=== PATIENT | female | born 1960 | race Caucasian/White ===

== ENCOUNTER 2020-09-06 09:01 | Outpatient (REF) | payer OTHER, SELFPAY ==
[2020-09-06 09:46] LABS: Hematocrit 40.5 % (37-47); Hemoglobin 13.2 g/dl (12.0-16.0); Mean Corpuscular HGB Conc 32.6 g/dl (31.0-35.0); Mean Corpuscular Hemoglobin 28.8 pg (27.0-33.0); Mean Corpuscular Volume 88.2 fL (80-98); Mean Platelet Volume 9.2 fL (9.4-12.3); Platelet Count 227 X10*3/uL (160-400); Red Blood Count 4.59 X10*6/uL (4.20-5.50); Red Cell Distribution Width 12.6 % (11.0-16.0); White Blood Count 5.6 X10*3/uL (4.8-10.8)
[2020-09-06 10:23] LABS: Alanine Aminotransferase 21 U/L (0-31); Albumin Level 4.2 g/dL (3.5-5.0); Alkaline Phosphatase 81 U/L (39-117); Anion Gap 11 (12-20); Aspartate Amino Transferase 21 U/L (5-31); Bilirubin Total 0.8 mg/dL (0.0-1.0); Blood Urea Nitrogen 18 mg/dL (9-16); Calcium 8.8 mg/dL (8.4-10.2); Carbon Dioxide 29 mmol/L (22-29); Chloride 105 mmol/L (96-108); Cholesterol 166 mg/dL; Estimated Glomerular Filt Rate > 60; Glucose Fasting 101 mg/dL (60-99); HDL Cholesterol 52 mg/dL; LDL Cholesterol Calculated 97 mg/dl; Potassium 4.5 mmol/L (3.3-5.1); Sodium 140 mmol/L (135-145); Total Protein 6.6 g/dL (6.5-8.0); Triglycerides 86 mg/dL
[2020-09-06 10:44] LABS: TSH reflex Free T4 1.33 uIU/mL (0.32-4.0)
[2020-09-06 10:47] LABS: Creatinine Urine 138.73 mg/dL; Microalbum/Creatinine Ratio Ur 6.4 ug/mg cr
== END 2020-09-06 09:02 | disposition home or self-care (01) ==
LOC: HO.LAB 09:01
PROVIDERS: PCP Physician Assistant; Visit Provider Physician Assistant
DX: I10 Essential (primary) hypertension (principal)
CPT/HCPCS: 36415; 80053; 80061; 82043; 84443; 85027

== ENCOUNTER 2021-07-10 10:55 | Outpatient (REF) | payer OTHER, SELFPAY ==
[2021-07-10 11:19] LABS: MANUAL DIFF FLAG NO
[2021-07-10 11:50] LABS: Basophils Absolute Auto 0.1 X10*3/uL (0.0-0.2); Basophils Percent Auto 0.7 % (0-2); Eosinophils Absolute Auto 0.2 X10*3/uL (0.0-0.4); Eosinophils Percent Auto 2.5 % (0-4); Hematocrit 42.8 % (37.0-47.0); Imm Gran Abs Auto 0.02 X10*3/uL (0.00-0.03); Imm Gran Pct Auto 0.3 % (0.0-0.4); Lymphocytes Absolute Auto 2.5 X10*3/uL (1.2-4.9); Lymphocytes Percent Auto 34.5 % (20-40); Mean Corpuscular HGB Conc 32.7 g/dl (31.0-35.0); Mean Corpuscular Hemoglobin 28.7 pg (27.0-33.0); Mean Corpuscular Volume 87.9 fL (80.0-98.0); Mean Platelet Volume 9.5 fL (9.4-12.3); Monocytes Absolute Auto 0.5 X10*3/uL (0.1-1.2); Monocytes Percent Auto 7.2 % (2-11); Neutrophils Percent Auto 54.8 % (45-73); Platelet Count 238 X10*3/uL (160-400); Red Blood Count 4.87 X10*6/uL (4.20-5.50); Red Cell Distribution Width 12.3 % (11.0-16.0); White Blood Count 7.3 X10*3/uL (4.8-10.8)
[2021-07-10 12:06] LABS: Alanine Aminotransferase 20 U/L (0-31); Albumin Level 4.6 g/dL (3.5-5.0); Alkaline Phosphatase 89 U/L (39-117); Anion Gap 13 (12-20); Aspartate Amino Transferase 21 U/L (5-31); Bilirubin Total 0.9 mg/dL (0.0-1.0); Blood Urea Nitrogen 19 mg/dL (9-16); Calcium 10.2 mg/dL (8.4-10.2); Carbon Dioxide 29 mmol/L (22-29); Chloride 104 mmol/L (96-108); Cholesterol 193 mg/dL; Estimated Glomerular Filt Rate > 60; Glucose Fasting 95 mg/dL (60-99); HDL Cholesterol 59 mg/dL; LDL Cholesterol Calculated 113 mg/dl; Potassium 4.8 mmol/L (3.3-5.1); Sodium 141 mmol/L (135-145); Total Protein 7.1 g/dL (6.5-8.0); Triglycerides 108 mg/dL
== END 2021-07-10 10:56 | disposition home or self-care (01) ==
LOC: HO.LAB 10:55
PROVIDERS: PCP Physician Assistant; Visit Provider Nurse Practitioner Family
DX: Z00.00 Encounter for general adult medical examination without abnormal findings (principal); E78.00 Pure hypercholesterolemia, unspecified; I10 Essential (primary) hypertension
CPT/HCPCS: 36415; 80053; 80061; 85025

== ENCOUNTER 2021-11-10 10:01 | Outpatient (REF) | payer OTHER, SELFPAY ==
[2021-11-13 10:57] LABS: HPV mRNA E6/E7 rflx Not Detected (Not Detected)
== END 2021-11-10 10:02 | disposition home or self-care (01) ==
LOC: HO.LAB 10:01
PROVIDERS: PCP Physician Assistant; Visit Provider Advanced Practice Midwife
DX: Z01.419 Encounter for gynecological examination (general) (routine) without abnormal findings (principal); Z11.51 Encounter for screening for human papillomavirus (HPV); Z88.1 Allergy status to other antibiotic agents; Z88.0 Allergy status to penicillin
CPT/HCPCS: 87624; 88142

== ENCOUNTER 2021-12-14 14:51 | Outpatient (REF) | payer OTHER, SELFPAY ==
--- NOTE | ~2021-12-14 | XR_ITS ---
EXAMINATION: XR SHOULDER, LEFT CLINICAL INFORMATION: Left shoulder pain COMPARISON: None TECHNIQUE: AP external rotation, Grashey, scapular Y, and axillary views of the left shoulder. FINDINGS: Visualized portion of the proximal left humerus demonstrate no fracture. Left humeral head demonstrates good articulation with the glenoid fossa. There are mild hypertrophic changes of the left acromioclavicular joint. Visualized left-sided ribs and lung parenchyma are unremarkable. XR/XR shoulder LT min 2V IMPRESSION: Mild degenerative changes of the left shoulder.
== END 2021-12-14 14:52 | disposition home or self-care (01) ==
LOC: HO.XRAY 14:51
PROVIDERS: PCP Physician Assistant; Visit Provider Nurse Practitioner Family
DX: M25.512 Pain in left shoulder (principal)
CPT/HCPCS: 73030

== ENCOUNTER → 2022-02-08 09:48 | Outpatient (BNVA) | payer OTHER, SELFPAY | PROVIDERS: PCP Physician Assistant; Visit Provider Physician Assistant | DX: M75.52 Bursitis of left shoulder (principal) | CPT/HCPCS: 20610; 99202; J1040 ==

== ENCOUNTER 2022-07-13 11:41 | Outpatient (REF) | payer OTHER, SELFPAY ==
[2022-07-13 12:34] LABS: Hematocrit 43.2 % (37.0-47.0); Hemoglobin 14.1 g/dl (12.0-16.0); Mean Corpuscular HGB Conc 32.6 g/dl (31.0-35.0); Mean Corpuscular Hemoglobin 28.8 pg (27.0-33.0); Mean Corpuscular Volume 88.2 fL (80.0-98.0); Mean Platelet Volume 9.4 fL (9.4-12.3); Platelet Count 250 X10*3/uL (160-400); Red Cell Distribution Width 12.1 % (11.0-16.0); White Blood Count 6.3 X10*3/uL (4.8-10.8)
[2022-07-13 13:29] LABS: Alanine Aminotransferase 18 U/L (0-31); Albumin Level 4.5 g/dL (3.5-5.0); Alkaline Phosphatase 83 U/L (39-117); Anion Gap 11 (12-20); Aspartate Amino Transferase 21 U/L (5-31); Bilirubin Total 0.7 mg/dL (0.0-1.0); Blood Urea Nitrogen 14 mg/dL (9-16); Calcium 9.7 mg/dL (8.4-10.2); Carbon Dioxide 27 mmol/L (22-29); Chloride 107 mmol/L (96-108); Cholesterol 179 mg/dL; Estimated Glomerular Filt Rate > 60; Glucose Fasting 90 mg/dL (60-99); HDL Cholesterol 63 mg/dL; LDL Cholesterol Calculated 97 mg/dl; Potassium 4.4 mmol/L (3.3-5.1); Sodium 141 mmol/L (135-145); TSH reflex Free T4 1.39 uIU/mL (0.32-4.0); Total Protein 6.8 g/dL (6.5-8.0); Triglycerides 98 mg/dL
[2022-07-13 14:00] LABS: Creatinine Urine 38.48 mg/dL; Microalbumin Urine < 5.0 mg/L
== END 2022-07-13 11:42 | disposition home or self-care (01) ==
LOC: HO.LAB 11:41
PROVIDERS: PCP Physician Assistant; Visit Provider Physician Assistant
DX: I10 Essential (primary) hypertension (principal); Z13.1 Encounter for screening for diabetes mellitus
CPT/HCPCS: 36415; 80053; 80061; 82043; 84443; 85027

== ENCOUNTER 2022-08-07 09:54 | Outpatient (REF) | payer OTHER, SELFPAY | END 2022-08-07 09:55 | disposition home or self-care (01) | LOC: HO.MAMMO 09:54 | PROVIDERS: PCP Physician Assistant; Visit Provider Physician Assistant | DX: Z13.89 Encounter for screening for other disorder (principal) ==

== ENCOUNTER 2023-02-25 14:39 | Outpatient (AMB) | payer OTHER, SELFPAY ==
--- NOTE | 2023-02-25 14:42 | MHC.OFFVIS ---
Intake Vital Signs 02/25/23 14:43 Height 5 ft 5 in Weight 162 lb BMI 27.0 BP 132/62 Blood Pressure Location Lt brachial Position Sitting Pulse 79 Intake Visit Reasons: Colonoscopy Screening Intake Note: Patient presents to in office visit today in colonoscopy screening. CC: Pt states she had her last colonoscopy 13 years ago at [facility]. Denies any GI issues today. 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 She is referred by Jorge A Mckeon of [facility] primary care.? PMX Hypertension Diabetes Left shoulder bursitis Breast asymmetry * SURGICAL HISTORY Pt denies * ALLERGIES Penicillin/amoxicillin * [facility]: none since 07/2022 TODAY'S VISIT She had a prior colonoscopy 12 years ago, she thinks she may have had a polyp. She has little experience with anesthesia and sedation but had no problems on last colonoscopy. She denies any cardiac or No ID problems. No known FHX of CRC or polyps. COUNTS INCLUDE 234 BEDS AT THE [facility] Medical History (Updated 02/25/23 @ 15:09 by MAXIM Hastings) Cough Hypertension Surgical History (Updated 02/25/23 @ 14:53 by CATALINA Johnson) H/O colonoscopy Family History Mother No problems noted. Father No problems noted. Social History Housing: Apartment Alcohol intake: never Patient Tobacco Use Status: Never used Tobacco e-Cigarette/Vaping Use: Never Used Second Hand Smoke Exposure: No service: No Current occupational status: employed Current occupation: [employer] / rt hand Cognitive needs: Yes Hearing needs: No Vision needs: Yes Review of Systems Const Denies fatigue, Denies fever(s), Denies night sweats, Denies poor appetite and Denies weight loss Eyes Details: glasses Reports requires corrective lenses ENT Reports Normal hearing present, Denies dental pain, Denies dysphagia, Denies hearing loss, Denies mouth pain, Denies odynophagia, Denies throat swelling, Denies tongue swelling and Reports other (Dentition adequate) GI Denies abdominal pain, Denies melena, Denies bloating, Denies hematochezia, Denies constipation, Denies GI cramping, Denies dysphagia, Denies excessive flatus, Denies early satiety, Denies heartburn, Denies diarrhea, Denies nausea, Denies odynophagia, Denies vomiting and Denies hematemesis Skin/Breast Denies pruritus, Denies lesions, Denies rash and Denies jaundice Neuro Reports Normal hearing present and Denies Abnormal speech present Endo Denies fatigue Aller/Immun Denies throat swelling and Denies tongue swelling Physical Exam Vital Signs: Last Vital Signs Pulse 79 02/25/23 14:43 BP 132/62 02/25/23 14:43 BMI result Body Mass Index 27.0 Const General: cooperative, no acute distress, well developed and well groomed Nutritional Appearance: average body habitus and well nourished Orientation/consciousness: oriented to person, oriented to place and oriented to time Limitations: No language barrier HEENT Head: Yes normocephalic and Yes atraumatic Eyes General: appearance normal, both eyes and all related structures Pupils: Equal, round and reactive pupils present Neck Neck: Yes normal visual inspection and Yes no lymphadenopathy Thyroid: Thyroid normal Resp Effort & Inspection: normal respiratory effort and able to speak in complete sentences Auscultation: clear to auscultation bilaterally Cardio Rate: regular rate Rhythm: regular rhythm Heart sounds: Normal, physiologic split S2 sound present Peripheral pulses: radial pulses present and posterior tibial pulses present GI Inspection: No distended and No Abdominal panniculus present Palpation (GI): Soft to palpation, nontender, no guarding, not rigid and No hepatosplenomegaly present Percussion: Yes normal to percussion Auscultation: normal bowel sounds Rectal Exam - Female: deferred Skin General skin exam: no rashes or lesions noted, turgor normal, skin not dry, no jaundice, No spider nevi and no striae Rashes: no rashes Nails: normal Neuro General: oriented to person, oriented to place and oriented to time Cranial nerves: Yes Equal, round and reactive pupils present and Yes Normal hearing present Speech: No Abnormal speech present Extrem General: Yes normal to inspection, No clubbing, No cyanosis and No edema Psych Appearance: grossly normal and well kempt Mental Status: mental status grossly normal Speech and movement: Pressured speech present Affect: Animated affect present Attitude: cooperative Thought process: Normal thought process present and not confabulating Thought content: Normal thought content present Insight: Limited insight present (Psych) Judgement: Limited judgement present (Psych) Assessment & Plan Assessment & Plan (1) Pre-op examination: Code(s): Z01.818 - Encounter for other preprocedural examination Plan: She had a prior colonoscopy 12 years ago, she thinks she may have had a polyp. She has little experience with anesthesia and sedation but had no problems on last colonoscopy. She denies any cardiac or No ID problems. No known FHX of CRC or polyps. Orders: Orders Complete Blood Count no Diff 02/25/23 I10 - Essential (primary) hypertension, Z01.818 - Encounter for other preprocedural examination Comprehensive [place]. Panel Fast 02/25/23 I10 - Essential (primary) hypertension, Z01.818 - Encounter for other preprocedural examination Medications: New sodium,potassium,mag sulfates 17.5-3.13-1.6 gram (Suprep Bowel Prep Kit) 480 mL orally; 354 mL 0RF Z01.818 - Encounter for other preprocedural examination Coding Level of Care Code New Pt Level 3 (64331) Diagnoses Pre-op examination Z01.818
[2023-02-25 14:43] VITALS: BP 132/62; PULSE 79; BMI 27.0
== END 2023-02-25 15:31 | disposition home or self-care (01) ==
PROVIDERS: PCP Physician Assistant; Visit Provider Nurse Practitioner
DX: Z01.818 Encounter for other preprocedural examination (principal); Z12.11 Encounter for screening for malignant neoplasm of colon
CPT/HCPCS: 99203

== ENCOUNTER → 2023-02-25 14:39 | Outpatient (BNVA) | payer OTHER, SELFPAY | PROVIDERS: PCP Physician Assistant; Visit Provider Nurse Practitioner | DX: Z01.818 Encounter for other preprocedural examination (principal) | CPT/HCPCS: 99202 ==

== ENCOUNTER 2023-06-15 16:38 | Outpatient (REF) | payer OTHER, SELFPAY ==
[2023-06-15 18:12] LABS: Iron 65 mcg/dL (30-160); Percent Iron Saturation 22 % (15-50); Total Iron Binding Capacity 302 mcg/dL (228-428); Unsaturated Iron Binding 237 ug/dL
== END 2023-06-15 16:39 | disposition home or self-care (01) ==
LOC: HO.LAB 16:38
PROVIDERS: Visit Provider Physician Assistant
DX: D50.9 Iron deficiency anemia, unspecified (principal)
CPT/HCPCS: 36415; 83540

== ENCOUNTER 2023-07-09 09:21 | Outpatient (REF) | payer OTHER, SELFPAY ==
[2023-07-09 09:58] LABS: Hematocrit 43.1 % (37.0-47.0); Hemoglobin 14.3 g/dl (12.0-16.0); Mean Corpuscular HGB Conc 33.2 g/dl (31.0-35.0); Mean Corpuscular Hemoglobin 29.2 pg (27.0-33.0); Mean Platelet Volume 9.6 fL (9.4-12.3); Platelet Count 220 X10*3/uL (160-400); Red Cell Distribution Width 12.1 % (11.0-16.0); White Blood Count 5.3 X10*3/uL (4.8-10.8)
[2023-07-09 10:24] LABS: Alanine Aminotransferase 14 U/L (0-31); Albumin Level 4.3 g/dL (3.5-5.0); Alkaline Phosphatase 79 U/L (39-117); Anion Gap 14 (12-20); Aspartate Amino Transferase 18 U/L (5-31); Blood Urea Nitrogen 19 mg/dL (9-16); Calcium 9.5 mg/dL (8.4-10.2); Carbon Dioxide 27 mmol/L (22-29); Chloride 106 mmol/L (96-108); Cholesterol 171 mg/dL (<200); Estimated Glomerular Filt Rate > 60; Glucose Fasting 92 mg/dL (60-99); HDL Cholesterol 60 mg/dL (>40); LDL Cholesterol Calculated 96 mg/dL (<100); Potassium 4.8 mmol/L (3.3-5.1); Sodium 142 mmol/L (135-145); Triglycerides 79 mg/dL (<150)
[2023-07-09 11:31] LABS: Creatinine Urine 101.72 mg/dL; Microalbum/Creatinine Ratio Ur 16.7 ug/mg cr (<30)
== END 2023-07-09 09:22 | disposition home or self-care (01) ==
LOC: HO.LAB 09:21
PROVIDERS: Nurse Practitioner; PCP Physician Assistant; Visit Provider Physician Assistant
DX: Z01.818 Encounter for other preprocedural examination (principal); I10 Essential (primary) hypertension
CPT/HCPCS: 36415; 80053; 80061; 82043; 82570; 85027

== ENCOUNTER 2023-07-13 15:40 | Outpatient (AMB) | payer OTHER, SELFPAY ==
[2023-07-13 15:40] VITALS: BP 136/70; PULSE 86; O2SAT 97; BMI 26.1
--- NOTE | 2023-07-13 15:40 | A.OFFPC_ITS ---
Vital Signs 07/13/23 15:40 Height 5 ft 5 in Weight 157 lb BMI 26.1 BP 136/70 Blood Pressure Location Lt brachial Position Sitting Pulse 86 Pulse Source Pulse Oximeter Pulse Oximetry (%) 97 Oxygen Delivery Method Room Air Intake Visit Reasons: PE Intake Note: Patient is here today for a physical. 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 Accompanied by: Self / Same As Patient Allergies amoxicillin Allergy (Intermediate, Verified 07/13/23 16:02) delusion Penicillins Allergy (Unknown, Verified 07/13/23 16:02) Hallucinations Medication List - Last Reconciled 07/13/23 by Jorge A Mckeon PA-C albuterol sulfate 90 mcg/actuation (Ventolin HFA) inhalation clotrimazole 1% 1 appl topical BID 15 days diclofenac sodium 1% (Voltaren Arthritis Pain) 2 grams topical QID fexofenadine (Mendy Allergy) 180 mg PO DAILY 30 days losartan 50 mg PO DAILY sodium,potassium,mag sulfates 17.5-3.13-1.6 gram (Suprep Bowel Prep Kit) 480 mL orally; Tobacco use date assessed: 01/03/23 Dental Screening Dental Screen Date: 07/13/23 Did you have a dental visit in the last 12 months?: Yes Did you have a dental problem in the last 6 months where you did not have access to dental care?: No Was dental information given to patient?: Patient has dentist HPI PE HPI Details Patient is a 62-year-old female here today for follow-up visit. Patient's past medical history significant for hypertension. concerns--> reports having a bug bite on her left leg that has been evident over the last month. Has been using Neosporin though has not gone away. .. Osteoarthritis: She continues to osteoarthritis pain in her shoulders and both knees and lower back. She has not used any [id number]-lgmmduo analgesics as she is afraid of side effects. She attributes her pain to long periods of standing at work. She is a peds retiring within the next 2 years. PLAN: She is willing to trial meloxicam 15 mg on a p.r.n. basis for her arthritic pain. . Hypertension: Patient adherent to losartan. Today's blood pressure in office acceptable. She denies any chest discomfort, headaches or vision issues. .. Colon cancer screening: Due to be scheduled colonoscopy mammo: Mammo done at [facility]- done at 09/2022- [facility] 1 Vaccine: Up-to-date with COVID vaccine, tetanus vaccine, flu vaccine. Considering shingles vaccine PFSH Medical History Cough Hypertension Surgical History H/O colonoscopy Family History Mother No problems noted. Father No problems noted. Social History Housing: Apartment Alcohol intake: never Patient Tobacco Use Status: Never used Tobacco e-Cigarette/Vaping Use: Never Used Second Hand Smoke Exposure: No service: No Current occupational status: employed Current occupation: [employer] / [employer] Cognitive needs: Yes Hearing needs: No Vision needs: Yes Questionnaire Thrive Questionnaire Date Thrive assessed: 01/03/23 JAN-7 AMB Questionnaire JAN-7 Date JAN - 7 assessed: 01/03/23 Source: Developed by Drs. José Luis Purcell, Aylin Paris, Gregg Hull and colleagues, with an educational niesha from [employer]. Review of Systems Const Denies body aches, Denies chills, Denies excessive sweating, Denies fatigue, Denies fever(s) and Denies headache(s) Eyes Denies blurry vision ENT Denies dysphagia, Denies vertigo, Denies dizziness, Denies headache(s), Denies hearing loss and Denies tinnitus Card Denies chest pain, Denies chest pain with activity, Denies syncope, Denies irregular heart rhythm and Denies dyspnea Resp Denies chest congestion, Denies cough, Denies hemoptysis, Denies dyspnea and Denies wheezing GI Denies abdominal pain, Denies melena, Denies hematochezia, Denies coffee ground emesis, Denies dysphagia, Denies diarrhea, Denies nausea and Denies vomiting Denies urinary frequency, Denies dysuria, Denies urinary hesitancy and Denies urinary urgency Musc Denies arthralgias, Denies limited range of motion, Denies muscle cramps and Denies muscle weakness Skin/Breast Denies rash and Denies skin ulcer Neuro Denies Abnormal speech present, Denies confusion, Denies vertigo, Denies dizziness, Denies syncope, Denies headache(s), Denies memory loss and Denies seizure-like activity Psych Denies anxiety, Denies confusion, Denies depression, Denies memory loss, Denies panic attacks and Denies paranoia Endo Denies excessive sweating, Denies fatigue, Denies flushing, Denies polydipsia and Denies polyuria Aller/Immun Denies wheezing Physical exam (Primary Care) Vital Signs: Last Vital Signs Pulse 86 07/13/23 15:40 BP 136/70 07/13/23 15:40 Pulse Ox 97 07/13/23 15:40 Oxygen Delivery Method Room Air 07/13/23 15:40 BMI result Body Mass Index 26.1 Tobacco/Smoking Status: Tobacco use Status Tobacco use date assessed 01/03/23 07/13/23 15:42 Patient Tobacco Use Status Never used Tobacco 07/13/23 15:42 e-Cigarette/Vaping Use Never Used 07/13/23 15:42 Thrive Assessment: Date of Thrive Assessment Date Thrive assessed 01/03/23 07/13/23 15:42 Const General: cooperative, comfortable, no acute distress, alert and awake; No confusion Orientation/consciousness: oriented to person, oriented to place, patient oriented x3 and No confusion HENMT Head: Yes normocephalic Ears: external ears normal and TM's normal bilaterally Face and sinus: No sinus tenderness Mouth: Normal oral and palatal mucosa present and tongue normal Teeth and gingiva: dentition normal and gingiva normal Throat: Yes posterior oropharynx normal, Yes tonsils normal and Yes uvula midline Eyes Conjunctivae: conjunctivae normal Sclerae: sclerae normal Pupils: Equal, round and reactive pupils present EOM: EOMs intact bilaterally Direct Ophthalmoscopy: No no photophobia Neck Neck: Yes no lymphadenopathy, No tender and Yes no JVD Thyroid: Thyroid normal Carotids: no bruits Chest Chest palpation & inspection: no tenderness Resp Effort & Inspection: normal respiratory effort, no audible wheezes, not labored and no stridor Auscultation: no crackles, no rales, no rhonchi and no wheezes Cardio Jugular venous distension: no JVD Rate: regular rate, not bradycardic and not tachycardic Rhythm: regular rhythm Bruits: no carotid bruits Peripheral pulses: Peripheral pulses 2+ throughout GI Inspection: Yes normal to inspection, No abdominal wall ecchymosis and No visible herniation Palpation (GI): Soft to palpation, nontender, no guarding, not rigid and No hepatosplenomegaly present Auscultation: normoactive bowel sounds General: Yes no CVA tenderness Back/Spine/Pelvis Back: no CVA tenderness and No back tenderness Cervical Spine: cervical ROM normal Thoracic/Lumbar Spine: thoracic and lumbar spine normal to inspection, straight leg raise negative bilaterally, No thoraco-lumbar ROM limited and No lumbar spinal tenderness Skin Lesions: no lesions Rashes: no rashes Wounds: no wounds Neuro General: oriented to person, oriented to place, patient oriented x3, CN's II-XI intact bilaterally and No confusion Cranial nerves: Yes Equal, round and reactive pupils present and Yes Normal accommodation reflex present Cognition (Neuro): normal cognition Speech: No Abnormal speech present Gait exam (Neuro): Normal gait present Motor exam (neuro): 5/5 motor strength present throughout Extrem Right upper extremity: full ROM; no cyanosis Left upper extremity: full ROM; no cyanosis Right lower extremity: no edema Left lower extremity: no edema Psych Appearance: grossly normal Mental Status: mental status grossly normal Affect: normal affect Attitude: cooperative Thought process: Normal thought process present Assessment and Plan Assessment & Plan (1) Annual physical exam: Code(s): Z00.00 - Encounter for general adult medical examination without abnormal findings (2) HTN (hypertension): Code(s): I10 - Essential (primary) hypertension Qualifiers: Hypertension type: essential hypertension Qualified Code(s): I10 - Essential (primary) hypertension Plan: Patient's blood pressure acceptable today in office. Will continue her current dose of losartan with goal blood pressure to be below 140/90 (3) Diabetes mellitus screening: Code(s): Z13.1 - Encounter for screening for diabetes mellitus (4) Osteoarthritis, knee: Code(s): M17.9 - Osteoarthritis of knee, unspecified Qualifiers: Laterality: bilateral Osteoarthritis type: primary Qualified Code(s): M17.0 - Bilateral primary osteoarthritis of knee Plan: As patient BI patient willing to trial meloxicam 15 mg for her arthritic pain. A otherwise has diclofenac sodium gel to use on a p.r.n. basis. Advised to continue to be physically active. Orders: Orders Complete Blood Count no Diff 6 Months I10 - Essential (primary) hypertension Microalbumin, Random (w Creat) 6 Months I10 - Essential (primary) hypertension Comprehensive [place]. Panel Fast 6 Months I10 - Essential (primary) hypertension Medications: New meloxicam 15 mg PO DAILY 30 days PRN 30 tabs 1RF pain, moderate M17.0 - Bila teral primary osteoarthritis of knee Coding Level of Care Code Est Pt Prev Care 40-64y(82016) Diagnoses Annual physical exam Z00.00 Essential hypertension I10 Hypertension type: essential hypertension Diabetes mellitus screening Z13.1 Primary osteoarthritis of both knees M17.0 Laterality: bilateral Osteoarthritis type: primary
== END 2023-07-13 16:37 | disposition home or self-care (01) ==
PROVIDERS: Visit Provider Physician Assistant
DX: Z00.00 Encounter for general adult medical examination without abnormal findings (principal); I10 Essential (primary) hypertension; Z13.1 Encounter for screening for diabetes mellitus; M17.0 Bilateral primary osteoarthritis of knee
CPT/HCPCS: 99396

== ENCOUNTER 2024-01-12 15:27 | Outpatient (AMB) | payer OTHER, SELFPAY ==
[2024-01-12 15:28] VITALS: BP 132/70; PULSE 82; O2SAT 98; BMI 25.1
--- NOTE | 2024-01-12 15:28 | A.OFFPC_ITS ---
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 Allergies amoxicillin Allergy (Intermediate, Verified 01/12/24 15:43) delusion Penicillins Allergy (Unknown, Verified 01/12/24 15:43) Hallucinations Medication List - Last Reconciled 01/12/24 by Jorge A Mckeon PA-C acetaminophen ER (Tylenol Arthritis Pain) 650 mg PO Q12H 30 days albuterol sulfate 90 mcg/actuation (Ventolin HFA) inhalation clotrimazole 1% 1 appl topical BID 15 days diclofenac sodium 1% (Voltaren Arthritis Pain) 2 grams topical QID fexofenadine (Mendy Allergy) 180 mg PO DAILY 30 days losartan 50 mg PO DAILY sodium,potassium,mag sulfates 17.5-3.13-1.6 gram (Suprep Bowel Prep Kit) 480 mL orally; Tobacco use date assessed: 01/12/24 Fall risk assessment: No Falls in past year Last assessed Fall Risk: 01/12/24 Dental Screening Dental Screen Date: 01/12/24 HPI f/u HTN HPI Details Patient is a 62-year-old female here today for follow-up visit. Patient's past medical history significant for hypertension. .. Osteoarthritis: She continues to osteoarthritis pain in her shoulders and both knees and lower back. She has not used any [id number] analgesics as she is afraid of side effects. She attributes her pain to long periods of standing at work. She is a peds retiring within the next 2 years. Has tried meloxicam in the past though had some minor side effects. She continues with Tylenol arthritis with good effect on reducing her arthritic pain . Hypertension: Patient adherent to losartan. Today's blood pressure in office acceptable. She denies any chest discomfort, headaches or vision issues. PFSH Medical History Cough Hypertension Surgical History H/O colonoscopy Family History Mother No problems noted. Father No problems noted. Social History Housing: Apartment Alcohol intake: never Patient Tobacco Use Status: Never used Tobacco e-Cigarette/Vaping Use: Never Used Second Hand Smoke Exposure: No service: No Current occupational status: employed Current occupation: [employer] Cognitive needs: Yes Hearing needs: No Vision needs: Yes Questionnaire PHQ-9 Over the last 2 weeks, how often have you been bothered by any of the following problems? 1. Little interest or pleasure in doing things: not at all 2. Feeling down, depressed, or hopeless: not at all 3. Trouble falling or staying asleep, or sleeping too much: not at all 4. Feeling tired or having little energy: not at all 5. Poor appetite or overeating: not at all 6. Feeling bad about yourself - or that you are a failure or have let yourself or your family down: not at all 7. Trouble concentrating on things, such as reading the newspaper or watching te levision: not at all 8. Moving or speaking so slowly that other people could have noticed. Or the opposite - being so fidgety or restless that you have been moving around a lot more than usual: not at all 9. Thoughts that you would be better off or of hurting yourself in some way: not at all Total score: 0 Depression Screening Interpretation: Negative Depression Screening Done: Yes [id number] - PHQ-9 Billing: Yes Source: Developed by Drs. José Luis Purcell, Aylin Paris, Gregg Hull and colleagues, with an educational niesha from [employer]. Thrive Questionnaire Date Thrive assessed: 01/12/24 I am a: Patient What is your living situation today?: I have a steady place to live Within the past 12 months, did the food you bought not last and you didn't have the money to get more?: Never true Within the past 12 months, did you worry whether your food would run out before you got money to buy more?: Never true Do you have trouble paying for medicines?: No Do you have trouble getting transportation to medical appointments?: No Do you have trouble paying your heating and electricity bill?: No Do you have trouble taking care of your child, family member or friend?: No Do you have trouble with day-to-day activities such as bathing, preparing meals, shopping, managing finances, etc.?: No Are you currently unemployed and looking for a job?: No Are you interested in more education?: No Please select the resources that you would like help with: None Currently or been in a relationship where the following occur: no concerns reported THRIVE Score: 0 AUDIT C Alcohol Use Questionnaire (AUDIT-C) 1. How often do you have a drink containing alcohol?: Never 3. How often do you have six or more drinks on one occasion?: Never Total Score: 0 JAN-7 AMB Questionnaire JAN-7 Date JAN - 7 assessed: 01/12/24 Feeling nervous, anxious, or on edge: 0 = Not at all Not being able to stop or control worryin = Not at all Worrying too much about different things: 0 = Not at all Trouble relaxin = Not at all Being so restless that it is hard to sit still: 0 = Not at all Becoming easily annoyed or irritable: 0 = Not at all Feeling afraid as if something awful might happen: 0 = Not at all Total JAN-7 score (0-4 normal; 5-9 mild; 10-14 moderate; 15-21 severe): 0 Source: Developed by Drs. José Luis Purcell, Aylin Paris, Gregg Hull and colleagues, with an educational niesha from [employer]. JAN-7 Assessment Billing JAN-7 Assessment Tool: JAN-7 Assessment [id number] Review of Systems Const Denies headache(s) Eyes Denies loss of vision ENT Denies vertigo, Denies dizziness, Denies headache(s) and Denies sore throat Card Denies chest pain, Denies leg edema and Denies lightheadedness Resp Denies cough, Denies hemoptysis and Denies wheezing GI Denies abdominal pain, Denies melena, Denies constipation, Denies diarrhea and Denies vomiting Denies urinary frequency, Denies dysuria and Denies urinary urgency Musc Denies arthralgias, Denies joint swelling, Denies numbness and Denies tingling Neuro Denies Abnormal speech present, Denies behavioral changes, Denies vertigo, Denies dizziness, Denies headache(s), Denies loss of vision, Denies memory loss, Denies numbness and Denies tingling Psych Denies anxiety, Denies behavioral changes, Denies depression, Denies memory loss and Denies panic attacks Nirmal/Lymph Denies easy bleeding and Denies easy bruising Aller/Immun Denies wheezing Physical exam (Primary Care) Vital Signs: Last Vital Signs Pulse 82 01/12/24 15:28 BP 132/70 01/12/24 15:28 Pulse Ox 98 01/12/24 15:28 Oxygen Delivery Method Room Air 01/12/24 15:28 BMI result Body Mass Index 25.1 Tobacco/Smoking Status: Tobacco use Status Tobacco use date assessed 01/12/24 01/12/24 15:30 Patient Tobacco Use Status Never used Tobacco 01/12/24 15:30 e-Cigarette/Vaping Use Never Used 01/12/24 15:30 PHQ-9: PHQ-9 Score PHQ-9: Total score 0 01/12/24 15:46 Depression Screening Interpretation: Negative Thrive Assessment: Date of Thrive Assessment Date Thrive assessed 01/12/24 01/12/24 15:30 Currently or been in a relationship where the following occur: no concerns reported Const General: healthy appearing, no acute distress, alert and awake Nutritional Appearance: well nourished Orientation/consciousness: oriented to person, oriented to place and oriented to time HENMT Ears: TM's normal bilaterally General nose exam: Normal nasal mucous membranes and turbinates present Eyes Conjunctivae: conjunctivae normal Sclerae: sclerae normal Pupils: Equal, round and reactive pupils present Neck Neck: Yes no lymphadenopathy and Yes no JVD Thyroid: Thyroid normal Carotids: no bruits Resp Effort & Inspection: normal respiratory effort and not tachypneic Auscultation: no crackles, no rales, no rhonchi and no wheezes Cardio Rate: regular rate Rhythm: regular rhythm Heart sounds: no murmurs and normal S1 and S2 GI Palpation (GI): Soft to palpation, nontender, no hepatomegaly and no splenomegal y Auscultation: normal bowel sounds Skin General skin exam: no rashes or lesions noted and dry skin Neuro General: oriented to person, oriented to place and oriented to time Cranial nerves: Yes Equal, round and reactive pupils present Speech: No Abnormal speech present Gait exam (Neuro): Normal gait present Motor exam (neuro): no tremor noted Extrem Right upper extremity: full ROM Left upper extremity: full ROM Right lower extremity: full ROM; no edema Left lower extremity: full ROM; no edema Psych Mental Status: mental status grossly normal Speech and movement: Normal speech and movement present Affect: normal affect Attitude: cooperative Thought process: Normal thought process present Assessment and Plan Assessment & Plan (1) HTN (hypertension): Code(s): I10 - Essential (primary) hypertension Qualifiers: Hypertension type: essential hypertension Qualified Code(s): I10 - Essential (primary) hypertension Plan: Patient's blood pressure acceptable today in office. Will continue her current dose of losartan with goal blood pressure to be below 140/90 (2) Osteoarthritis, knee: Code(s): M17.9 - Osteoarthritis of knee, unspecified Qualifiers: Laterality: bilateral Osteoarthritis type: primary Qualified Code(s): M17.0 - Bilateral primary osteoarthritis of knee Plan: Advised to continue to be physically active. She does use Tylenol arthritis with good effect on reducing her arthritic pain. Orders: Orders Microalbumin, Random (w Creat) 01/12/24 I10 - Essential (primary) hypertension Complete Blood Count no Diff 01/12/24 I10 - Essential (primary) hypertension Comprehensive Donaldson. Panel Fast 01/12/24 I10 - Essential (primary) hypertension Patient Instructions: Goal: Blood pressure to remain below 140/90 Barriers: Adherence to physical activity and healthy eating habits. Coding Level of Care Code Est Pt Level 4 (53727) Diagnoses Essential hypertension I10 Hypertension type: essential hypertension Primary osteoarthritis of both knees M17.0 Laterality: bilateral Osteoarthritis type: primary Additional Codes JAN-7 Assessment Billing - JAN-7 Assessment Tool: JAN-7 Assessment [id number] ([id number])
== END 2024-01-12 16:05 | disposition home or self-care (01) ==
PROVIDERS: PCP Physician Assistant; Visit Provider Physician Assistant
DX: I10 Essential (primary) hypertension (principal); M17.0 Bilateral primary osteoarthritis of knee
CPT/HCPCS: 99214

== ENCOUNTER 2024-04-13 07:32 | Outpatient (REF) | payer OTHER, SELFPAY ==
[2024-04-13 07:58] LABS: Hematocrit 40.7 % (37.0-47.0); Hemoglobin 13.7 g/dl (12.0-16.0); Mean Corpuscular HGB Conc 33.7 g/dl (31.0-35.0); Mean Corpuscular Hemoglobin 29.3 pg (27.0-33.0); Mean Corpuscular Volume 87.2 fL (80.0-98.0); Mean Platelet Volume 9.2 fL (9.4-12.3); Platelet Count 195 X10*3/uL (160-400); Red Blood Count 4.67 X10*6/uL (4.20-5.50); Red Cell Distribution Width 12.5 % (11.0-16.0); White Blood Count 5.3 X10*3/uL (4.8-10.8)
[2024-04-13 08:36] LABS: Alanine Aminotransferase 14 U/L (0-31); Albumin Level 4.3 g/dL (3.5-5.0); Alkaline Phosphatase 75 U/L (39-117); Anion Gap 10 (12-20); Aspartate Amino Transferase 16 U/L (5-31); Blood Urea Nitrogen 18 mg/dL (9-16); Calcium 9.7 mg/dL (8.4-10.2); Carbon Dioxide 30 mmol/L (22-29); Chloride 107 mmol/L (96-108); Estimated Glomerular Filt Rate > 60; Glucose Fasting 97 mg/dL (60-99); Potassium 3.9 mmol/L (3.3-5.1); Sodium 143 mmol/L (135-145); Total Protein 6.7 g/dL (6.5-8.0)
[2024-04-13 08:37] LABS: HIV AB/AG Nonreactive (Nonreactive); HIV Num 1 0.07 S/CO (0.00-0.99)
[2024-04-13 08:46] LABS: TSH reflex Free T4 1.65 uIU/mL (0.32-4.0)
[2024-04-13 09:24] LABS: Creatinine Urine 156.54 mg/dL; Microalbum/Creatinine Ratio Ur 5.7 ug/mg cr (<30)
== END 2024-04-13 07:33 | disposition home or self-care (01) ==
LOC: HO.LAB 07:32
PROVIDERS: PCP Physician Assistant; Visit Provider Physician Assistant
DX: I10 Essential (primary) hypertension (principal); R63.4 Abnormal weight loss; Z11.3 Encounter for screening for infections with a predominantly sexual mode of transmission
CPT/HCPCS: 36415; 80053; 82043; 82570; 84443; 85027; 87389

== ENCOUNTER 2024-06-04 14:51 | Outpatient (AMB) | payer OTHER, SELFPAY ==
[2024-06-04 15:04] VITALS: BP 140/72; BMI 23.8
--- NOTE | 2024-06-04 15:04 | A.OFFPC_ITS ---
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: No Accompanied by: Self / Same As Patient Allergies amoxicillin Allergy (Intermediate, Verified 06/04/24 15:11) delusion Penicillins Allergy (Unknown, Verified 06/04/24 15:11) Hallucinations Medication List - Last Reconciled 06/04/24 by Lisset Solorzano MD acetaminophen ER (Tylenol Arthritis Pain) 650 mg PO Q12H 30 days albuterol sulfate 90 mcg/actuation (Ventolin HFA) inhalation clotrimazole 1% 1 appl topical BID 15 days diclofenac sodium 1% (Voltaren Arthritis Pain) 2 grams topical QID fexofenadine (Mendy Allergy) 180 mg PO DAILY 30 days losartan 50 mg PO DAILY sodium,potassium,mag sulfates 17.5-3.13-1.6 gram (Suprep Bowel Prep Kit) 480 mL orally; Tobacco use date assessed: 01/12/24 Fall risk assessment: No Falls in past year Last assessed Fall Risk: 06/04/24 Dental Screening Dental Screen Date: 06/04/24 Did you have a dental visit in the last 12 months?: No Did you have a dental problem in the last 6 months where you did not have access to dental care?: No Was dental information given to patient?: Patient has dentist HPI HPI Comments History of Present Illness Details This is a 63 year old female that comes today complaining of low back pain that radiates to the left lef starting 2 weeks ago after she push something heavy. She was out of work for 2 weeks and came back today. The pain was waken her up. Today pain has markedly resolve with 1 aleve. She was taken tylenol before with no significant relief. No fever, bowel or bladder incontinence. [facility] Medical History (Updated 06/04/24 @ 20:25 by Lisset Solorzano MD) Cough Hypertension Surgical History H/O colonoscopy Family History Mother No problems noted. Father No problems noted. Social History Housing: Apartment Alcohol intake: never Patient Tobacco Use Status: Never used Tobacco e-Cigarette/Vaping Use: Never Used Second Hand Smoke Exposure: No service: No Current occupational status: employed Current occupation: [employer] / [employer] Cognitive needs: Yes Hearing needs: No Vision needs: Yes Questionnaire Thrive Questionnaire Date Thrive assessed: 01/12/24 JAN-7 AMB Questionnaire JAN-7 Date JAN - 7 assessed: 01/12/24 Source: Developed by Drs. José Luis Purcell, Aylin Paris, Gregg Hull and colleagues, with an educational niesha from [employer]. Review of Systems Const All systems reviewed & are unremarkable except as noted in HPI and below Card Denies chest pain at rest, Denies chest pain with activity, Denies edema, Denies irregular heart rhythm, Denies claudication, Denies dyspnea, Denies dyspnea on exertion, Denies orthopnea, Denies paroxysmal nocturnal dyspnea and Denies slow heart rate Resp Denies cough, Denies dyspnea and Denies dyspnea on exertion Denies urinary incontinence, Denies urinary hesitancy and Denies urinary urgency Musc Denies abnormal gait, Reports back pain, Denies atrophy, Denies deformity and Denies limited range of motion Skin/Breast Denies bleeding lesions, Denies changing lesions and Denies rash Neuro Denies abnormal gait, Denies behavioral changes and Denies lack of coordination Psych Denies behavioral changes Physical exam (Primary Care) Vital Signs: Last Vital Signs BP 140/72 H 06/04/24 15:04 BMI result Body Mass Index 23.8 Tobacco/Smoking Status: Tobacco use Status Tobacco use date assessed 01/12/24 06/04/24 15:06 Patient Tobacco Use Status Never used Tobacco 06/04/24 15:06 e-Cigarette/Vaping Use Never Used 06/04/24 15:06 Thrive Assessment: Date of Thrive Assessment Date Thrive assessed 01/12/24 06/04/24 15:06 Resp Effort & Inspection: normal respiratory effort Auscultation: clear to auscultation bilaterally Cardio Jugular venous distension: no JVD Rate: regular rate Rhythm: regular rhythm Heart sounds: S1 normal heart sound present and S2 normal heart sound present Back/Spine/Pelvis Thoracic/Lumbar Spine: straight leg raise positive left Extrem General: Yes full ROM Coding Level of Care Code Est Pt Level 3 (39037) Complex EM visit Add On G2211 Diagnoses Left sided sciatica M54.32 Time Spent (min) 19 Assessment & Plan Assessment & Plan (1) Left sided sciatica: Code(s): M54.32 - Sciatica, left side Category: Medical Plan: Continue tylenol prn.
== END 2024-06-04 15:38 | disposition home or self-care (01) ==
LOC: HO.HMCH 14:52
PROVIDERS: PCP Physician Assistant; Visit Provider Internal Medicine
DX: M54.32 Sciatica, left side (principal)

== ENCOUNTER → 2024-06-04 14:51 | Outpatient (BNVA) | payer OTHER, SELFPAY | PROVIDERS: PCP Physician Assistant; Visit Provider Internal Medicine | DX: M54.32 Sciatica, left side (principal) | CPT/HCPCS: 99212 ==

== ENCOUNTER 2024-07-17 15:54 | Outpatient (AMB) | payer OTHER, SELFPAY ==
--- OUTSIDE RECORDS SUMMARY | 2024-07-17 15:56 | XMS_ITS | Data Portability ---
Author Organization [facility] Address [address] [place] [address] Care Team Providers Care Business Analysis Professional Name Role Phone KENTRELLERICJUDY Primary Care Provider Assessment No assessment recorded. Plan of Treatment Reminders Order Date Submit Date Provider Last Modified By Organization Details Last Modified Time Details Appointments None recorded. Lab None recorded. Referral None recorded. Procedures None recorded. Surgeries None recorded. Imaging None recorded. Medication Orders ibuprofen 600 mg tablet 2022 023 [facility] [address] [place] [address], [id number], 3 09:29:45 cyclobenzap rine 10 mg tablet 2022 023 [facility] [address], [address] [place] [address], [id number], 3 09:29:44 Patient TargetsNo targets recorded. Patient Instructions Encounter Date Encounter Id Patient Instructions Last Modified By Organization Details Last Modified Time 11/01/2022 [id number] MUSCULOSKELETAL PAIN can be managed quite effectively with over the counter medications and home treatments. When suffering from sprains, strains, contusions and other types of very painful but non-dangerous musculoskeletal pain try the following: ??? 1. IBUPROFEN 600 mg orally every 6 hours as needed for pain. (You may substitute naproxen/aleve 1-2 tablets orally twice per day, but do not take ibuprofen and naproxen together. They are in the same class of medications - NSAIDs). ??? 2. ACETAMINOPHEN 1,000 mg or 6 hours is needed for pain. ??? 3. ICE and/or HEAT as needed for pain. Only use ice or heat for about 20 minutes at a time to prevent skin damage. You may switch from one to the other if it helps. Repeat frequently throughout the day as needed. Please do not fall asleep while using ice or heat as severe frostbite or chatman can result. For sudden injuries it is best to use ice without heat for the first two days. You may then add heat as needed for pain control. ??? 4. Topical medication such as ASPERCREME, mineral ice, and bengay feels good to rub on painful areas and then works by distracting you from the pain. Do not apply over broken skin. ??? 5. Many musculoskeletal injuries can benefit from gentle stretching or strengthening exercises. ??? If pain does not improve please see your doctor or return to [facility] within one week. If your symptoms become severe or uncontrolled or if you develop new concerning symptoms please go to the Emergency Department for evaluation and pain control. summer Not available 11/01/2022 09:29:37 Elevate injured extremity to help decrease swelling Ice the area 15 minutes every 3-4 hours ibuprofen and/or tylenol as needed for pain Follow up with [facility] or your pcp if the injury fails to heal in the coming weeks [email or web address] Not available 11/01/2022 09:29:15 Reason for Referral None Reported. Problems Name Problem SNOMED Code Status Onset Date Resolution Date Notes Provider Name and Address Organization Details Recorded Time Hypertensive disorder 85716015 Active 2022 JUVENTINO swartz, PA - [facility] 3 08:58:00 Problem Notes None recorded. Medical Equipment None Reported. Allergies Allergen ID Allergen Name Allergen Category Reaction Reaction Severity Criticality Documentation Date Start Date Code Code System Note Provider Name and Address Organization Details Recorded Time 667833 Medicinal product containin g penicilli n and acting as antibacte rial agent (product) medicatio n hallucina tions Not available Not available 11/01/2022 04337 05 SNOMED JUVENTINO swartz, PA - [facility] 08:59:21 084543 amoxicill in medicatio n hallucina tions Not available Not available 11/01/2022 723 RxNorm JUVENTINO swartz, PA - [facility] 3 08:59:33 Medications Name Sig Start Date Stop Date Status Note LastModified by Organization Details LastModified Time losartan 50 mg tablet TAKE ONE TABLET DAILY active Not Available Not Available No t Available cyclobenzapri ne 10 mg tablet TAKE 1 TABLET BY MOUTH ONCE DAILY AT BEDTIME FOR 7 DAYS active Not Available Not Available N ot Available clindamycin HCl 300 mg capsule TAKE 1 CAPSULE BY MOUTH THREE TIMES DAILY FOR INFECTION FOR 10 DAYS active Not Available Not Available No t Available benzonatate 200 mg capsule TAKE 1 CAPSULE BY MOUTH THREE TIMES DAILY NEEDED FOR COUGH FOR 7 DAYS active Not Available Not Available No t Available prednisone 20 mg tablet TAKE 2 TABLETS BY MOUTH ONCE DAILY IN THE MORNING WITH FOOD FOR 3 DAYS active Not Available Not Available N ot Available codeine 10 mg-guaifenesi n 100 mg/5 mL oral liquid TAKE 5 ml's BY MOUTH EVERY 6 HOURS NEEDED FOR COUGH active Not Available Not Available No t Available ibuprofen 600 mg tablet TAKE 1 TABLET BY MOUTH THREE TIMES DAILY WITH MEALS FOR 10 DAYS active Not Available Not Available No t Available fluticasone propionate 50 mcg/actuation nasal spray,suspens ion USE 1 SPRAY(S) IN EACH NOSTRIL TWICE DAILY FOR ALLERGIES SYMPTOMS active Not Available Not Available No t Available naproxen 500 mg tablet TAKE ONE TABLET BY MOUTH TWICE DAILY NEEDED FOR PAIN active Not Available Not Available No t Available Ventolin HFA 90 mcg/actuation aerosol inhaler INHALE 2 PUFFS BY MOUTH EVERY 4 HOURS NEEDED FOR SHORTNESS OF BREATH active Not Available Not Available No t Available losartan 50 mg daily active Not Available Not Available No t Available potassium active Not Available Not Kimberlyn ilable Not Available diclofenac 1 % topical gel APPLY TWO GRAM FOUR TIMES DAILY TO SINGLE ELBOW, WRIST OR HAND (PALM, FINGER AND FOR BACK OF HAND) active Not Available Not Available No t Available Vitals Date Recorded Body height Body mass index (BMI) Body weight Respiratory rate Oxygen saturation Oxygen saturation in Arterial blood by Pulse oximetry Heart rate Body temperature Systolic blood pressure Diastolic blood pressure Provider Name and Address Organization Details Last Updated DateTime 3 165.1 cm 25.8 kg/m2 76044.8 2 g 16 /min 98 % 98 % 84 /min 98.4 [degF] 143 mm[Hg] 77 mm[Hg] JUVENTINO Michael [facility] 09:02:02 Social History Question Answer Notes LastModified by Organizat ion Details LastModified Time Tobacco Smoking Status Never Smoker XIAO Crowley - [facility] 11/01/2022 09:00:40 What Is Your Level Of Alcohol Consumption? None [email or web address] Information not available 11/01/2022 Do You Use Any Illicit Or Recreational Drugs? No [email or web address] Information not available 11/01/2022 Have You Recently Traveled Abroad? No [email or web address] Information not available 11/01/2022 Do You Or Have You Ever Used Any Other Forms Of Tobacco Or Nicotine? No [email or web address] Information not available 11/01/2022 Sex: Unknown Functional Status None recorded. Mental Status None recorded. Family History Relationship Description Onset Age of this Age Resolved Age Notes LastModified by Organization Details LastModified Time Father No current problems or disability [email or web address] Not available 11/01 09:00:20 Mother No current problems or disability [email or web address] Not available 11/01 09:00:21 Medical History No medical history recorded. Gynecological HistoryNo gynecological history recorded. Obstetrics History GPAL:G 0 P 0 0 0 0 Past Encounters Encounter ID Performer Location Encounter Start Date Encounter Closed Date Diagnosis/Indication Diagnosis SNOMED-CT Code Diagnosis ICD10 Code [id number] [address] [place] [address] 05/10/2022 10:03:32 05/10/2022 14:14:57 [id number] [address] [place] [address] 03/29/2022 08:22:54 03/29/2022 10:00:25 [id number] [address] [place] [address] 04/25/2022 09:04:23 04/25/2022 11:30:34 [id number] [address] [place] [address] 08/02/2016 09:08:03 08/02/2016 09:33:56 [id number] [address] [place] [address] 11/18/2015 12:45:31 11/18/2015 13:25:26 [id number] Adrián Ibarra NP [address] [place] [address] 11/01/2022 08:13:20 11/01/2022 09:32:08 Fall on same level from slipping, tripping or stumbling 342608009 W01.0XXA Muscle pain 30621792 M79 .10 Contusion of right hip region 9262649699 3027715 S70.01XA Health Concerns Section Related Observation LastModified by Organization Detai ls LastModified Time None Recorded Concern Status LastModified by Organization Details LastModified Time None Recorded Advance Directives Directive None Recorded Payers Encounter Date Sequence Insurance Name Policy Number Policy Dotson Covered Member ID Dotson Member ID Guarantor Name 03/29/2022 1 [facility] [id number] Josie Aleman [id number] [facility] 04/25/2022 1 [facility] [id number] Josie Aleman [id number] Josie Aleman 05/10/2022 1 [facility] ([facility] [id number] Josie Aleman [id number] Josie Aleman 11/01/2022 1 [facility] [place] [id number] Josie Aleman [id number] [facility] Notes Date Note Type Note Provider Name and Address Organization Details Recorded Time 3 text/html FallReported bypatient.source of patient informationInformation obtained from patient; Patient arrived at Urgent Care ambulatory; learning styles: auditory Location of injuries:back; wrist right; hand right; hip right; knee right Quality:aching Severity:pain scale : 3 Duration:constant Onset/Timing: Onset PTA1 days Context:fell from standing position; tripped Aggravating factors:standing; walking; lifting; bending Alleviating factors:ice; rest Associated Symptoms:recalls event; no dizziness Location where injury occurred:store/shopping; outdoors reported medicationsnot currently taking a blood thinner Adrián Ibarra NP [address] [place], [address], PA - [facility] 11/01/2022 09:31:46 OBGyn Episode No OBEpisode recorded.
[2024-07-17 16:03] VITALS: BP 142/78; PULSE 97; O2SAT 99; BMI 23.8
--- NOTE | 2024-07-17 16:03 | MHC.PC.OV ---
Vital Signs 07/17/24 16:03 Height 5 ft 5 in Weight 143 lb 2 oz BMI 23.8 BP 142/78 H Blood Pressure Location Lt brachial Position Sitting Pulse 97 Pulse Source Pulse Oximeter Pulse Oximetry (%) 99 Oxygen Delivery Method Room Air Intake Visit Reasons: Annual Exam Intake Note: Patient is here today for a physical and possible sinus infection. Urogynecology Physician Required: No Accompanied by: Self / Same As Patient Allergies amoxicillin Allergy (Intermediate, Verified 07/17/24 16:04) delusion Penicillins Allergy (Unknown, Verified 07/17/24 16:04) Hallucinations Medication List - Last Reconciled 07/17/24 by Jorge A Mckeon PA-C acetaminophen ER (Tylenol Arthritis Pain) 650 mg PO Q12H 30 days clotrimazole 1% 1 appl topical BID 15 days diclofenac sodium 1% (Voltaren Arthritis Pain) 2 grams topical QID fexofenadine (Mendy Allergy) 180 mg PO DAILY 30 days gabapentin 100 mg PO DAILY 30 days losartan 50 mg PO DAILY sodium,potassium,mag sulfates 17.5-3.13-1.6 gram (Suprep Bowel Prep Kit) 480 mL orally; Tobacco use date assessed: 01/12/24 Fall risk assessment: No Falls in past year Last assessed Fall Risk: 07/17/24 Dental Screening Dental Screen Date: 06/04/24 HPI Annual Exam HPI Details Patient is a 63-year-old female here today for a routine annual physical. Patient's past medical history significant for hypertension. Concerns--> report nasal congestion over the last 48 hours, has been using Mendy though reports a dry throat. She is open to the idea of the trying a nasal spray. .. Osteoarthritis: She continues to osteoarthritis pain in her shoulders and both knees and lower back. She has not used any olxw-gwp-odctvbr analgesics as she is afraid of side effects. She attributes her pain to long periods of standing at work. She will be retiring next month from her job will be much less physically active. . Hypertension: Patient adherent to losartan. Today's blood pressure in office slightly elevated to which we related to currently feeling a bit sick. She reports her blood pressures are usually 120 systolic. She denies any chest discomfort, headaches or vision issues. Colon cancer screening: Due to be scheduled colonoscopy- had to cancel her last colonoscopy date due to being set mammo: Mammo done at [facility]- done at 09/2023- [facility] 1 Vaccine: Up-to-date with COVID vaccine, tetanus vaccine, flu vaccine. Considering shingles vaccine, Need flu vaccine PFSH Medical History Cough Hypertension Surgical History H/O colonoscopy Family History Mother No problems noted. Father No problems noted. Social History Housing: Apartment Alcohol intake: never Patient Tobacco Use Status: Never used Tobacco e-Cigarette/Vaping Use: Never Used Second Hand Smoke Exposure: No service: No Current occupational status: employed Current occupation: [employer] / [employer] Cognitive needs: Yes Hearing needs: No Vision needs: Yes Questionnaire Thrive Questionnaire Date Thrive assessed: 01/12/24 I am a: Patient What is your living situation today?: I choose not to answer this question Within the past 12 months, did the food you bought not last and you didn't have the money to get more?: I choose not to answer this question Within the past 12 months, did you worry whether your food would run out before you got money to buy more?: I choose not to answer this question Do you have trouble paying for medicines?: I choose not to answer this question Do you have trouble getting transportation to medical appointments?: I choose not to answer this question Do you have trouble paying your heating and electricity bill?: I choose not to answer this question Do you have trouble taking care of your child, family member or friend?: I choose not to answer this question Do you have trouble with day-to-day activities such as bathing, preparing meals, shopping, managing finances, etc.?: I choose not to answer this question Are you currently unemployed and looking for a job?: I choose not to answer this question Are you interested in more education?: I choose not to answer this question Please select the resources that you would like help with: None Currently or been in a relationship where the following occur: I choose not to answer THRIVE Score: 0 AUDIT C Alcohol Use Questionnaire (AUDIT-C) 1. How often do you have a drink containing alcohol?: Never Total Score: 0 JAN-7 AMB Questionnaire JAN-7 Date JAN - 7 assessed: 01/12/24 Feeling nervous, anxious, or on edge: 0 = Not at all Not being able to stop or control worryin = Not at all Worrying too much about different things: 0 = Not at all Trouble relaxin = Not at all Being so restless that it is hard to sit still: 0 = Not at all Becoming easily annoyed or irritable: 0 = Not at all Feeling afraid as if something awful might happen: 0 = Not at all Total JAN-7 score (0-4 normal; 5-9 mild; 10-14 moderate; 15-21 severe): 0 Source: Developed by Drs. José Luis Purcell, Aylin Paris, Gregg Hull and colleagues, with an educational niesha from [employer]. JAN-7 Assessment Billing JAN-7 Assessment Tool: JAN-7 Assessment 09511 Review of Systems Const Denies body aches, Denies chills, Denies excessive sweating, Denies fatigue, Denies fever(s) and Denies headache(s) Eyes Denies blurry vision ENT Denies dysphagia, Denies vertigo, Denies dizziness, Denies headache(s), Denies hearing loss, Reports nasal discharge, Denies tinnitus and Reports sinus pressure Card Denies chest pain, Denies chest pain with activity, Denies syncope, Denies irregular heart rhythm and Denies dyspnea Resp Denies chest congestion, Denies cough, Denies hemoptysis, Denies dyspnea and Denies wheezing GI Denies abdominal pain, Denies melena, Denies hematochezia, Denies coffee ground emesis, Denies dysphagia, Denies diarrhea, Denies nausea and Denies vomiting Denies urinary frequency, Denies dysuria, Denies urinary hesitancy and Denies urinary urgency Musc Denies arthralgias, Denies limited range of motion, Denies muscle cramps and Denies muscle weakness Skin/Breast Denies rash and Denies skin ulcer Neuro Denies Abnormal speech present, Denies confusion, Denies vertigo, Denies dizziness, Denies syncope, Denies headache(s), Denies memory loss and Denies seizure-like activity Psych Denies anxiety, Denies confusion, Denies depression, Denies memory loss, Denies panic attacks and Denies paranoia Endo Denies excessive sweating, Denies fatigue, Denies flushing, Denies polydipsia and Denies polyuria Aller/Immun Denies wheezing Physical exam (Primary Care) Vital Signs: Last Vital Signs Pulse 97 07/17/24 16:03 BP 142/78 H 07/17/24 16:03 Pulse Ox 99 07/17/24 16:03 Oxygen Delivery Method Room Air 07/17/24 16:03 BMI result Body Mass Index 23.8 Tobacco/Smoking Status: Tobacco use Status Tobacco use date assessed 01/12/24 07/17/24 16:05 Patient Tobacco Use Status Never used Tobacco 07/17/24 16:05 e-Cigarette/Vaping Use Never Used 07/17/24 16:05 Thrive Assessment: Date of Thrive Assessment Date Thrive assessed 01/12/24 07/17/24 16:05 Currently or been in a relationship where the following occur: I choose not to answer Const General: cooperative, comfortable, no acute distress, alert and awake; No confusion Orientation/consciousness: oriented to person, oriented to place, patient oriented x3 and No confusion HENMT Head: Yes normocephalic Ears: external ears normal and TM's normal bilaterally Face and sinus: No sinus tenderness Mouth: Normal oral and palatal mucosa present and tongue normal Teeth and gingiva: dentition normal and gingiva normal Throat: Yes posterior oropharynx normal, Yes tonsils normal and Yes uvula midline Eyes Conjunctivae: conjunctivae normal Sclerae: sclerae normal Pupils: Equal, round and reactive pupils present EOM: EOMs intact bilaterally Direct Ophthalmoscopy: No no photophobia Neck Neck: Yes no lymphadenopathy, No tender and Yes no JVD Thyroid: Thyroid normal Carotids: no bruits Chest Chest palpation & inspection: no tenderness Resp Effort & Inspection: normal respiratory effort, no audible wheezes, not labored and no stridor Auscultation: no crackles, no rales, no rhonchi and no wheezes Cardio Jugular venous distension: no JVD Rate: regular rate, not bradycardic and not tachycardic Rhythm: regular rhythm Bruits: no carotid bruits Peripheral pulses: Peripheral pulses 2+ throughout GI Inspection: Yes normal to inspection, No abdominal wall ecchymosis and No visible herniation Palpation (GI): Soft to palpation, nontender, no guarding, not rigid and No hepatosplenomegaly present Auscultation: normoactive bowel sounds General: Yes no CVA tenderness Back/Spine/Pelvis Back: no CVA tenderness and No back tenderness Cervical Spine: cervical ROM normal Thoracic/Lumbar Spine: thoracic and lumbar spine normal to inspection, straight leg raise negative bilaterally, No thoraco-lumbar ROM limited and No lumbar spinal tenderness Skin Lesions: no lesions Rashes: no rashes Wounds: no wounds Neuro General: oriented to person, oriented to place, patient oriented x3, CN's II-XI intact bilaterally and No confusion Cranial nerves: Yes Equal, round and reactive pupils present and Yes Normal accommodation reflex present Cognition (Neuro): normal cognition Speech: No Abnormal speech present Gait exam (Neuro): Normal gait present Motor exam (neuro): 5/5 motor strength present throughout Extrem Right upper extremity: full ROM; no cyanosis Left upper extremity: full ROM; no cyanosis Right lower extremity: no edema Left lower extremity: no edema Psych Appearance: grossly normal Mental Status: mental status grossly normal Affect: normal affect Attitude: cooperative Thought process: Normal thought process present Office Procedures Flu Questionnaire Does the patient have a severe egg allergy?: No Does the patient have severe life threatening allergies?: No Does the patient have a fever or illness today?: No Has the patient ever had Guillain-Fruithurst Syndrome?: No Has the patient ever had any past reaction to a flu shot?: No Immunizations Fluarix Triv [id number] (PF) 45 mcg (15 mcg x 3)/0.5 mL IM syringe Performing Provider: Jorge A Mckeon PA-C [facility] Administered by: CATALINA Barraza on 07/17/24 16:31 Dose Route Admin Location Dispensed Lot Number Expiration Date [facility] Exerciser Horse 0.5 mL IM Left Deltoid 0.5 mL [id number] 01/28/25 [id number] [employer] VIS Given Date VIS Provided VIS Publication Date 07/17/24 Single Vaccine 21 Eligibility Eligibility Date Funding Source Not [facility] Eligible 07/17/24 Private Coding Level of Care Code Est Pt Prev Care 40-64y(82157) Diagnoses Physical exam Z00.00 Essential hypertension I10 Hypertension type: essential hypertension Allergic rhinitis, unspecified seasonality, unspecified trigger J30.9 Allergic rhinitis seasonality: unspecified Allergic rhinitis trigger: unspecified Left sided sciatica M54.32 Additional Codes JAN-7 Assessment Billing - JAN-7 Assessment Tool: JAN-7 Assessment 33239 ([id number]) Assessment & Plan Assessment & Plan (1) Physical exam: Code(s): Z00.00 - Encounter for general adult medical examination without abnormal findings Category: Medical Plan: As per HPI (2) HTN (hypertension): Code(s): I10 - Essential (primary) hypertension Category: Medical Qualifiers: Hypertension type: essential hypertension Qualified Code(s): I10 - Essential (primary) hypertension Plan: Patient's blood pressure slightly elevated today in office. She does report feeling a bit under the weather with the nasal congestion. She continues to be compliant with losartan 50 mg. Goal blood pressures to be consistently below 140/90 (3) Allergic rhinitis: Code(s): J30.9 - Allergic rhinitis, unspecified Category: Medical Qualifiers: Allergic rhinitis seasonality: unspecified Allergic rhinitis trigger: unspecified Qualified Code(s): J30.9 - Allergic rhinitis, unspecified Plan: Will supply patient with Flonase nasal spray. Advised to call back in a week and if not better will consider antibiotic (4) Left sided sciatica: Code(s): M54.32 - Sciatica, left side Category: Medical Plan: Recently had a work-related injury in May of 2024 where she hurt her back. She did do physical therapy and she has made a 90% improvement. She is due to see an orthopedic for x-rays and evaluation in near future. Otherwise she is doing much better and on light duty at work. She plans on retiring in the next month from her job. Orders: Orders MM screening mammo BI 07/17/24 Z12.31 - Encounter for screening mammogram for malignant neoplasm of breast Influenza 1308-0070 Immunization 07/17/24 Z23 - Encounter for immunization Medications: New fluticasone propionate 50 mcg/actuation (Flonase Allergy Relief) administer into each nostril 1 spray intranasal Q12H 16 grams 0RF 30 days J30.9 - Allergic rhinitis, unspecified Refilled losartan 50 mg PO DAILY 90 tabs 2RF I10 - Essential (primary) hypertension
== END 2024-07-17 18:03 | disposition home or self-care (01) ==
PROVIDERS: PCP Physician Assistant; Visit Provider Physician Assistant
DX: Z00.00 Encounter for general adult medical examination without abnormal findings (principal); I10 Essential (primary) hypertension; J30.9 Allergic rhinitis, unspecified; M54.32 Sciatica, left side

== ENCOUNTER → 2024-07-17 15:54 | Outpatient (BNVA) | payer OTHER, SELFPAY | PROVIDERS: PCP Physician Assistant; Visit Provider Physician Assistant | DX: Z00.00 Encounter for general adult medical examination without abnormal findings (principal); I10 Essential (primary) hypertension; M17.0 Bilateral primary osteoarthritis of knee; M47.816 Spondylosis without myelopathy or radiculopathy, lumbar region; M19.012 Primary osteoarthritis, left shoulder; M19.011 Primary osteoarthritis, right shoulder; M54.32 Sciatica, left side; J30.9 Allergic rhinitis, unspecified; Z23 Encounter for immunization | CPT/HCPCS: 90471; 90656; 96127; 99396 ==

== ENCOUNTER 2025-01-24 15:39 | Outpatient (AMB) | payer MEDICARE, MEDICAID, SELFPAY ==
[2025-01-24 15:54] VITALS: BP 142/68; TEMP 36.2; O2SAT 98; BMI 23.2
--- NOTE | 2025-01-24 15:54 | MHC.PC.OV ---
Vital Signs 01/24/25 15:54 01/24/25 16:25 Height 5 ft 5 in Weight 139 lb 4 oz BMI 23.2 BP 142/68 H 140/70 H Blood Pressure Location Lt brachial Position Sitting Pulse Source Pulse Oximeter Temp 97.1 F Temp Source Temporal Artery Scan Pulse Oximetry (%) 98 Oxygen Delivery Method Room Air Intake Visit Reasons: 6 month f/u HTN Chemistry Instructor Required: No Accompanied by: Self / Same As Patient Allergies amoxicillin Allergy (Intermediate, Verified 01/24/25 16:09) delusion Penicillins Allergy (Unknown, Verified 01/24/25 16:09) Hallucinations diclofenac Adverse Reaction (Intermediate, Verified 01/24/25 16:09) Upset stomach Medication List - Last Reconciled 01/24/25 by Jorge A Mckeon PA-C acetaminophen ER (Tylenol Arthritis Pain) 650 mg PO Q12H 30 days cholecalciferol (vitamin D3) 1,250 mcg PO QWEEK clotrimazole 1% 1 appl topical BID 15 days diclofenac sodium 1% (Voltaren Arthritis Pain) 2 grams topical QID fexofenadine (Mendy Allergy) 180 mg PO DAILY 30 days fluticasone propionate 50 mcg/actuation (Flonase Allergy Relief) 1 spray intranasal Q12H 30 days gabapentin 100 mg PO DAILY 30 days Held on 11/19/24. Instructions: Doctor's Order losartan 50 mg PO DAILY sodium,potassium,mag sulfates 17.5-3.13-1.6 gram (Suprep Bowel Prep Kit) 480 mL orally; tizanidine 2 mg PO BID PRN 15 days Tobacco use date assessed: 01/24/25 Fall risk assessment: No Falls in past year Last assessed Fall Risk: 01/24/25 Dental Screening Dental Screen Date: 01/24/25 Did you have a dental visit in the last 12 months?: Yes Did you have a dental problem in the last 6 months where you did not have access to dental care?: No Was dental information given to patient?: Patient has dentist HPI 6 month f/u HTN HPI Details Patient is a 64-year-old female here today for a follow-up visit. Patient's past medical history significant for hypertension. Concerns--> patient reports her lower back pain in her right arm pain has been getting much better. She has been physical therapy over the last few months secondary to right humerus fracture from a fall. .. Osteoarthritis: She continues to osteoarthritis pain in her shoulders and both knees and lower back. She has not used any ridt-ztk-bocircn analgesics as she is afraid of side effects. She attributes her pain to long periods of standing at work. She will be retiring next month from her job will be much less physically active. . Hypertension: Patient adherent to losartan. Today's blood pressure in office slightly elevated to which we related to white coat hypertension. She is not regularly checking her blood pressure at home. . She reports her blood pressures are usually 120 systolic. She denies any chest discomfort, headaches or vision issues. [facility] Medical History Cough Hypertension Surgical History H/O colonoscopy Family History Mother No problems noted. Father No problems noted. Social History Housing: Apartment Alcohol intake: never Patient Tobacco Use Status: Never used Tobacco e-Cigarette/Vaping Use: Never Used Second Hand Smoke Exposure: No service: No Current occupational status: employed Current occupation: [employer] / [employer] Cognitive needs: Yes Hearing needs: No Vision needs: Yes Questionnaire Thrive Questionnaire Date Thrive assessed: 07/17/24 I am a: Patient What is your living situation today?: I choose not to answer this question Within the past 12 months, did the food you bought not last and you didn't have the money to get more?: I choose not to answer this question Within the past 12 months, did you worry whether your food would run out before you got money to buy more?: I choose not to answer this question Do you have trouble paying for medicines?: I choose not to answer this question Do you have trouble getting transportation to medical appointments?: I choose not to answer this question Do you have trouble paying your heating and electricity bill?: I choose not to answer this question Do you have trouble taking care of your child, family member or friend?: I choose not to answer this question Do you have trouble with day-to-day activities such as bathing, preparing meals, shopping, managing finances, etc.?: I choose not to answer this question Are you currently unemployed and looking for a job?: I choose not to answer this question Are you interested in more education?: I choose not to answer this question Please select the resources that you would like help with: None Currently or been in a relationship where the following occur: I choose not to answer THRIVE Score: 0 JAN-7 AMB Questionnaire JAN-7 Date JAN - 7 assessed: 01/12/24 Source: Developed by Drs. José Luis Purcell, Aylin Paris, Gregg Hull and colleagues, with an educational niesha from [employer]. Review of Systems Const Denies headache(s) Eyes Denies loss of vision ENT Denies vertigo, Denies dizziness, Denies headache(s) and Denies sore throat Card Denies chest pain, Denies leg edema and Denies lightheadedness Resp Denies cough, Denies hemoptysis and Denies wheezing GI Denies abdominal pain, Denies melena, Denies constipation, Denies diarrhea and Denies vomiting Denies urinary frequency, Denies dysuria and Denies urinary urgency Musc Denies arthralgias, Denies joint swelling, Denies numbness and Denies tingling Neuro Denies Abnormal speech present, Denies behavioral changes, Denies vertigo, Denies dizziness, Denies headache(s), Denies loss of vision, Denies memory loss, Denies numbness and Denies tingling Psych Denies anxiety, Denies behavioral changes, Denies depression, Denies memory loss and Denies panic attacks Nirmal/Lymph Denies easy bleeding and Denies easy bruising Aller/Immun Denies wheezing Physical exam (Primary Care) Vital Signs: Last Vital Signs Temp 97.1 F 01/24/25 15:54 BP 140/70 H 01/24/25 16:25 Pulse Ox 98 01/24/25 15:54 Oxygen Delivery Method Room Air 01/24/25 15:54 BMI result Body Mass Index 23.2 Tobacco/Smoking Status: Tobacco use Status Tobacco use date assessed 01/24/25 01/24/25 15:55 Patient Tobacco Use Status Never used Tobacco 01/24/25 15:55 e-Cigarette/Vaping Use Never Used 01/24/25 15:55 Thrive Assessment: Date of Thrive Assessment Date Thrive assessed 07/17/24 01/24/25 15:55 Currently or been in a relationship where the following occur: I choose not to answer Const General: healthy appearing, no acute distress, alert and awake Nutritional Appearance: well nourished Orientation/consciousness: oriented to person, oriented to place and oriented to time HENMT Ears: TM's normal bilaterally General nose exam: Normal nasal mucous membranes and turbinates present Eyes Conjunctivae: conjunctivae normal Sclerae: sclerae normal Pupils: Equal, round and reactive pupils present Neck Neck: Yes no lymphadenopathy and Yes no JVD Thyroid: Thyroid normal Carotids: no bruits Resp Effort & Inspection: normal respiratory effort and not tachypneic Auscultation: no crackles, no rales, no rhonchi and no wheezes Cardio Rate: regular rate Rhythm: regular rhythm Heart sounds: no murmurs and normal S1 and S2 GI Palpation (GI): Soft to palpation, nontender, no hepatomegaly and no splenomegaly Auscultation: normal bowel sounds Skin General skin exam: no rashes or lesions noted and dry skin Neuro General: oriented to person, oriented to place and oriented to time Cranial nerves: Yes Equal, round and reactive pupils present Speech: No Abnormal speech present Gait exam (Neuro): Normal gait present Motor exam (neuro): no tremor noted Extrem Right upper extremity: full ROM Left upper extremity: full ROM Right lower extremity: full ROM; no edema Left lower extremity: full ROM; no edema Psych Mental Status: mental status grossly normal Speech and movement: Normal speech and movement present Affect: normal affect Attitude: cooperative Thought process: Normal thought process present Coding Level of Care Code Est Pt Level 4 (45433) Diagnoses Essential hypertension I10 Hypertension type: essential hypertension Assessment & Plan Assessment & Plan (1) HTN (hypertension): Code(s): I10 - Essential (primary) hypertension Category: Medical Qualifiers: Hypertension type: essential hypertension Qualified Code(s): I10 - Essential (primary) hypertension Plan: Patient's blood pressure slightly elevated today in office. She continues to be compliant with losartan 50 mg. Will continue current dose of losartan. Goal blood pressures to be consistently below 140/90 Orders: Orders Microalbumin, Random (w Creat) 01/24/25 I10 - Essential (primary) hypertension Comprehensive [place]. Panel Fast 01/24/25 I10 - Essential (primary) hypertension Complete Blood Count no Diff 01/24/25 I10 - Essential (primary) hypertension Medications: New miscellaneous medical supply (Blood Pressure Cuff) As directed 1 ea 0RF I10 - Essential (primary) hypertension Refilled losartan 50 mg PO DAILY 90 tabs 2RF I10 - Essential (primary) hypertension
[2025-01-24 16:25] VITALS: BP 140/70
--- OUTSIDE RECORDS SUMMARY | 2025-01-24 19:22 | XMS_ITS | Encounter Summary ---
Author Organization [employer] Address [address] [place] [address] Care Team Providers Care Newcomer Hostess Name Role Phone Unavailable Primary Care Provider Unavailabl e Reason for Visit * Reason Onset Date Comments Appointment 06/01/2023 Encounter Details Date Type Department Care Team (Late st Contact Info) Description 06/01/2023 Telephone [facility] [address] [place] [address] Mike Briseno, [address] [place] [address] Appointment Social History Tobacco Use Types Packs/Day Years Used Date Smoking Tobacco: Never Passive Smoke Exposure: Never Smokeless Tobacco: Never Alcohol Use Standard Drinks/Week Comments Never 0 (1 standard drink = 0.6 oz pur e alcohol) Comments Unknown Sex and Gender Information Value Date Recorded Sex Assigned at Female 05/31/2022 10:17 AM EDT Legal Sex Female 10:17 AM EDT Gender Identity Female 09/29/2022 2:10 PM EST Sexual Orientation Straight 09/29/2022 2: 10 PM EST documented as of this encounter Miscellaneous Notes * Telephone Encounter - Fadumo Rush - 06/01/2023 3:08 PM EDT Patient called if possible she been missing a lot of work due to dentist appt her days off are jul 11,12,13,14,15 she like to be booked on those days documented in this encounter Plan of Treatment Not on file documented as of this encounter Visit Diagnoses Not on filedocumented in this encounter
== END 2025-01-24 16:42 | disposition home or self-care (01) ==
LOC: HO.HMCH 15:40
PROVIDERS: PCP Physician Assistant; Visit Provider Physician Assistant
DX: I10 Essential (primary) hypertension (principal)

== ENCOUNTER → 2025-01-24 15:39 | Outpatient (BNVA) | payer MEDICARE, MEDICAID, SELFPAY | PROVIDERS: PCP Physician Assistant; Visit Provider Physician Assistant | DX: I10 Essential (primary) hypertension (principal) | CPT/HCPCS: 99212 ==

== ENCOUNTER 2025-03-01 11:21 | Outpatient (AMB) | payer MEDICARE, MEDICAID, SELFPAY ==
--- OUTSIDE RECORDS SUMMARY | 2025-03-01 11:25 | XMS_ITS | Encounter Summary ---
Author Organization [employer] Address [address] [place] [address] Care Team Providers Care Offal Roller Name Role Phone Unavailable Primary Care Provider Unavailabl e Reason for Visit * Reason Onset Date Comments Appointment 06/01/2023 Encounter Details Date Type Department Care Team (Late st Contact Info) Description 06/01/2023 Telephone [facility] [address] [place] [address] Mike Briseno, [address] [place] [address] Appointment Social History Tobacco Use Types Packs/Day [...]
[2025-03-01 11:26] VITALS: BP 127/62; PULSE 86; TEMP 37; O2SAT 99; BMI 23.0
--- NOTE | 2025-03-01 11:26 | AM.OFFWIN_ITS ---
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 - Approximately three weeks ago, the pat gab sustained a contusion to her leg after hitting it on a metal bagging station, resulting in significant bruising and swelling. - The bruising has resolved, but she con tinues to experience pain in the leg and hip area, with tenderness near the sciatic nerve. - She reports previous tingling at night , but no current numbness or tingling. - The patient has been using gabapentin for pain management but experiences side effects such as drowsiness and grogginess. - She also uses Tylenol and Aleve for pa in relief, especially before physical therapy sessions for a previous humerus fracture. - She is undergoing physical therapy for a humerus fracture sustained in September, with significant improvement in range of motion. - She denies numbness, tingling, back pa in, knee pain, ankle pain, or foot pain. Physical Exam General: Cooperative, healthy appearing, comfortable, no acute distress and well developed Orientation: Patient oriented x3 Limitations: No limitations Respiratory: Normal respiratory effort and able to speak in complete sentences. Clear to auscultation bilaterally Cardiovascular: Regular rate and rhythm. Normal S1 and S2 Skin: No rashes or lesions noted Neuro: Sensation intact. Extremities: Normal to inspection. No swelling or bruising noted. FROM of the left hip and knee. No TTP of the left lateral hip, upper leg. TTP of the left SI joint. Negative SLR noted. FROM of the left knee, ankle. No TTP of the knee or ankle. Strength is 5/5 on the lower extremitiies. DTR are 2+. Ambulates with steady gait. Patient was informed and verbally consented to the use of an ambient scribe for clinic note documentation during this visit. [facility] Medical History Cough Hypertension Surgical History H/O colonoscopy Family History Mother No problems noted. Father No problems noted. Social History Housing: Apartment Alcohol intake: never Patient Tobacco Use Status: Never used Tobacco e-Cigarette/Vaping Use: Never Used Second Hand Smoke Exposure: No Patient : No service: No Current occupational status: employed Current occupation: [employer] / [employer] Cognitive needs: Yes Hearing needs: No Vision needs: Yes Review of Systems Const All systems reviewed & are unremarkable except as noted in HPI and below Physical Exam Vital Signs: Last Vital Signs Temp 98.6 F 03/01/25 11:26 Pulse 86 03/01/25 11:26 BP 127/62 03/01/25 11:26 Pulse Ox 99 03/01/25 11:26 Oxygen Delivery Method Room Air 03/01/25 11:26 BMI result Body Mass Index 23.0 Assessment & Plan Assessment & Plan (1) Left hip pain: Code(s): M25.552 - Pain in left hip Plan Most likely Plan - Continue with Aleve for pain management, with a prescription for a higher dose of naproxen to be sent to the pharmacy. - Consider adding a muscle relaxer, such as Flexeril, to help alleviate muscle stiffness and pain, particularly at night. - Discontinue gabapentin if it is not effective or causes undesirable side effects. - Continue physical therapy for the humerus fracture to improve range of motion. Medications: New cyclobenzaprine 5 mg PO Q8H PRN 15 tabs 0RF Muscle Spasm 5 days naproxen 500 mg PO Q12H PRN 20 tabs 0RF pain 7 days Coding Level of Care Code Est Pt Level 4 (15760) Diagnoses Left hip pain M25.552
== END 2025-03-01 12:15 | disposition home or self-care (01) ==
PROVIDERS: PCP Physician Assistant; Visit Provider Physician Assistant Medical
DX: M25.552 Pain in left hip (principal)

== ENCOUNTER → 2025-03-01 11:21 | Outpatient (BNVA) | payer MEDICARE, MEDICAID, SELFPAY | PROVIDERS: PCP Physician Assistant; Visit Provider Physician Assistant Medical | DX: M25.552 Pain in left hip (principal) | CPT/HCPCS: 99212 ==

== ENCOUNTER 2025-03-05 13:26 | Outpatient (REF) | payer MEDICARE, MEDICAID, SELFPAY ==
--- NOTE | ~2025-03-05 | MM_ITS ---
EXAMINATION: DXA BONE DENSITY AXIAL HISTORY: Z78.0 - Asymptomatic menopausal state TECHNIQUE: [employer] Dual energy absorptiometry (DEXA) of the lumbar spine, total left hip, and femoral neck was performed. COMPARISON: There are no prior studies for comparison. FINDINGS: The bone mineral density of the lumbar spine is 0.999 g/cm2, corresponding to a T-score of -1.5, and a Z-score of 0.2. This is indicative of osteopenia. The bone mineral density of the left total hip is 0.859 g/cm2, corresponding to a T-score of -1.2, and a Z-score of 0.1. This is indicative of osteopenia. The bone mineral density of the left femoral neck is 0.872 g/cm2, corresponding to a T-score of -1.2, and a Z-score of 0.3. This is indicative of osteopenia. FRACTURE RISK: The FRAX index suggests a risk of major osteoporotic fracture of 13.3%, and of hip fracture 1.2%. MM/XR DEXA axial skeleton IMPRESSION: Based on bone mineral density, and according to World Health Organization (WHO) criteria, the diagnosis is consistent with osteopenia. Statistically, 68% of repeat scans fall within 1 SD (+/- 0.010 g/cm2 for AP spine L1-L4) and 1 SD (+/- 0.012 g/cm2 for femur total) FRAX is a trademark of the [employer] [facility] [employer], a World Health Organization (WHO) Collaborating Center. Electronically signed by: José Luis Romero MD 03/05/2025 02:27 PM EDT
--- OUTSIDE RECORDS SUMMARY | 2025-03-05 14:04 | XMS_ITS | Encounter Summary ---
Author Organization [employer] Address [address] [place] [address] Care Team Providers Care Retread Technician Name Role Phone Unavailable Primary Care Provider Unavailabl e Reason for Visit * Reason Onset Date Comments Appointment 06/01/2023 Encounter Details Date Type Department Care Team (Late st Contact Info) Description 06/01/2023 Telephone [facility] [address] [place] [address] Mike Briseno, [address] [place] [address] Appointment Social History Tobacco Use Types Packs/Day [...]
== END 2025-03-05 13:27 | disposition home or self-care (01) ==
LOC: HO.MAMMO 13:26
PROVIDERS: PCP Physician Assistant; Visit Provider Physician Assistant
DX: Z13.820 Encounter for screening for osteoporosis (principal); Z78.0 Asymptomatic menopausal state
CPT/HCPCS: 77080

== ENCOUNTER → 2025-03-05 13:30 | Outpatient (BNV) | payer MEDICARE, MEDICAID, SELFPAY | PROVIDERS: PCP Physician Assistant; Visit Provider Radiology Diagnostic Radiology | DX: E28.39 Other primary ovarian failure (principal) | CPT/HCPCS: 77080 ==

== ENCOUNTER 2025-05-22 12:13 | Outpatient (REF) | payer MEDICARE, MEDICAID, SELFPAY | END 2025-05-22 12:14 | disposition home or self-care (01) | LOC: HO.MAMMO 12:13 | PROVIDERS: PCP Physician Assistant; Visit Provider Physician Assistant | DX: Z12.31 Encounter for screening mammogram for malignant neoplasm of breast (principal) | CPT/HCPCS: 77063; 77067 ==

== ENCOUNTER → 2025-05-22 12:15 | Outpatient (BNV) | payer MEDICARE, MEDICAID, SELFPAY | PROVIDERS: PCP Physician Assistant; Visit Provider Radiology Body Imaging | DX: Z12.31 Encounter for screening mammogram for malignant neoplasm of breast (principal) | CPT/HCPCS: 77063; 77067 ==

== ENCOUNTER 2025-07-12 08:56 | Outpatient (REF) | payer MEDICARE, OTHER, SELFPAY ==
[2025-07-12 10:06] LABS: Hematocrit 43.0 % (37.0-47.0); Hemoglobin 14.1 g/dl (12.0-16.0); Mean Corpuscular HGB Conc 32.8 g/dl (31.0-35.0); Mean Corpuscular Hemoglobin 28.9 pg (27.0-33.0); Mean Corpuscular Volume 88.1 fL (80.0-98.0); NRBC Abs Auto 0.020 X10*3/uL (0.0-0.012); NRBC Pct Auto 0.3 /100WBC (0.0-0.2); Platelet Count 216 X10*3/uL (160-400); Red Blood Count 4.88 X10*6/uL (4.20-5.50); White Blood Count 5.7 X10*3/uL (4.8-10.8)
[2025-07-12 10:49] LABS: Alanine Aminotransferase 14 U/L (0-31); Albumin Level 4.8 g/dL (3.5-5.0); Alkaline Phosphatase 87 U/L (39-117); Anion Gap 9 (12-20); Aspartate Amino Transferase 21 U/L (5-31); Blood Urea Nitrogen 16 mg/dL (9-16); Calcium 10.1 mg/dL (8.4-10.2); Carbon Dioxide 31 mmol/L (22-29); Chloride 105 mmol/L (96-108); Estimated Glomerular Filt Rate > 60; Potassium 3.8 mmol/L (3.3-5.1); Sodium 141 mmol/L (135-145); Total Protein 7.1 g/dL (6.5-8.0)
[2025-07-12 11:49] LABS: Microalbum/Creatinine Ratio Ur 5.7 ug/mg cr (<30)
== END 2025-07-12 08:57 | disposition home or self-care (01) ==
LOC: HO.LAB 08:56
PROVIDERS: PCP Physician Assistant; Visit Provider Physician Assistant
DX: I10 Essential (primary) hypertension (principal)
CPT/HCPCS: 36415; 80053; 82043; 82570; 85027

== ENCOUNTER 2025-07-22 13:10 | Outpatient (AMB) | payer MEDICARE, MEDICAID, SELFPAY ==
--- NOTE | 2025-07-22 13:29 | MHC.PC.OV ---
Vital Signs 07/22/25 13:31 Height 5 ft 5 in Weight 147 lb BMI 24.5 BP 122/68 Blood Pressure Location Lt brachial Position Sitting Respiration 18 Pulse 81 Pulse Source Pulse Oximeter Temp 97.9 F Temp Source Temporal Artery Scan Pulse Oximetry (%) 98 Intake Visit Reasons: Annual exam Contact Center Representative Required: No Accompanied by: Self / Same As Patient Allergies amoxicillin Allergy (Intermediate, Verified 07/22/25 13:39) delusion Penicillins Allergy (Unknown, Verified 07/22/25 13:39) Hallucinations diclofenac Adverse Reaction (Intermediate, Verified 07/22/25 13:39) Upset stomach Medication List - Last Reconciled 07/22/25 by Jorge A Mckeon PA-C acetaminophen ER (Tylenol Arthritis Pain) 650 mg PO Q12H 30 days blood pressure monitor (Blood Pressure Kit) As directed fexofenadine (Mendy Allergy) 180 mg PO DAILY 30 days fluticasone propionate 50 mcg/actuation (Flonase Allergy Relief) 1 spray intranasal Q12H 30 days losartan 50 mg PO DAILY losartan 50 mg PO DAILY miscellaneous medical supply (Blood Pressure Cuff) As directed naproxen 500 mg PO Q12H PRN 7 days Tobacco use date assessed: 01/24/25 Fall risk assessment: No Falls in past year Last assessed Fall Risk: 07/22/25 Dental Screening Dental Screen Date: 01/24/25 HPI Annual exam HPI Details Patient is a 64-year-old female here today for an annual physical.. Patient's past medical history significant for hypertension. Patient now retired Concerns--> The patient reports new-onset left groin soreness for the past 2 weeks. The pain is not severe enough to require regular analgesics, although she will occasionally take Aleve. She reports a history of generalized arthritis, which also affects her shoulders and foot, and she feels it worsens with cold, rainy weather. She has been performing sciatic nerve stretches and tries to walk daily. .. Acne rosacea: She has a noncancerous lesion on her face from sun exposure, which was treated with cryotherapy but is still present, though less itchy. She also reports redness and bumps on her cheeks and nose that have developed over the past 5 years. ... . Hypertension: Patient adherent to losartan. Today's blood pressure in office acceptable today in office. She reports her blood pressures are usually 120 systolic. She denies any chest discomfort, headaches or vision issues. Colon cancer screening: Due to be scheduled colonoscopy- had to cancel her last colonoscopy date due to being set mammo: Mammo done at [facility]- done at 09/2023- [facility] 1 .. Bone density: Done in March 2025, has osteopenia. 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 Considering shingles vaccine, UTD with FLu PFSH Medical History Cough Hypertension Surgical History H/O colonoscopy Family History Mother No problems noted. Father No problems noted. Social History Housing: Apartment Alcohol intake: never Patient Tobacco Use Status: Never used Tobacco e-Cigarette/Vaping Use: Never Used Second Hand Smoke Exposure: No service: No Current occupational status: employed Current occupation: [employer] Cognitive needs: Yes Hearing needs: No Vision needs: Yes Questionnaire Thrive Questionnaire Date Thrive assessed: 07/22/25 I am a: Patient What is your living situation today?: I choose not to answer this question Within the past 12 months, did the food you bought not last and you didn't have the money to get more?: I choose not to answer this question Within the past 12 months, did you worry whether your food would run out before you got money to buy more?: I choose not to answer this question Do you have trouble paying for medicines?: I choose not to answer this question Do you have trouble getting transportation to medical appointments?: I choose not to answer this question Do you have trouble paying your heating and electricity bill?: I choose not to answer this question Do you have trouble taking care of your child, family member or friend?: I choose not to answer this question Do you have trouble with day-to-day activities such as bathing, preparing meals, shopping, managing finances, etc.?: I choose not to answer this question Are you currently unemployed and looking for a job?: I choose not to answer this question Are you interested in more education?: I choose not to answer this question Currently or been in a relationship where the following occur: I choose not to answer THRIVE Score: 0 AUDIT C Alcohol Use Questionnaire (AUDIT-C) 1. How often do you have a drink containing alcohol?: Never Total Score: 0 JAN-7 AMB Questionnaire JAN-7 Date JAN - 7 assessed: 07/22/25 Feeling nervous, anxious, or on edge: 0 = Not at all Not being able to stop or control worryin = Not at all Worrying too much about different things: 0 = Not at all Trouble relaxin = Not at all Being so restless that it is hard to sit still: 0 = Not at all Becoming easily annoyed or irritable: 0 = Not at all Feeling afraid as if something awful might happen: 0 = Not at all Total JAN-7 score (0-4 normal; 5-9 mild; 10-14 moderate; 15-21 severe): 0 Source: Developed by Drs. José Luis Purcell, Aylin Paris, Gregg Hull and colleagues, with an educational niesha from [employer]. Review of Systems Const Denies body aches, Denies chills, Denies excessive sweating, Denies fatigue, Denies fever(s) and Denies headache(s) Eyes Denies blurry vision ENT Denies dysphagia, Denies vertigo, Denies dizziness, Denies headache(s), Denies hearing loss and Denies tinnitus Card Denies chest pain, Denies chest pain with activity, Denies syncope, Denies irregular heart rhythm and Denies dyspnea Resp Denies chest congestion, Denies cough, Denies hemoptysis, Denies dyspnea and Denies wheezing GI Denies abdominal pain, Denies melena, Denies hematochezia, Denies coffee ground emesis, Denies dysphagia, Denies diarrhea, Denies nausea and Denies vomiting Denies urinary frequency, Denies dysuria, Denies urinary hesitancy and Denies urinary urgency Musc Details: + left groin pain Denies arthralgias, Denies limited range of motion, Denies muscle cramps and Denies muscle weakness Skin/Breast Denies rash and Denies skin ulcer Neuro Denies Abnormal speech present, Denies confusion, Denies vertigo, Denies dizziness, Denies syncope, Denies headache(s), Denies memory loss and Denies seizure-like activity Psych Denies anxiety, Denies confusion, Denies depression, Denies memory loss, Denies panic attacks and Denies paranoia Endo Denies excessive sweating, Denies fatigue, Denies flushing, Denies polydipsia and Denies polyuria Aller/Immun Denies wheezing Physical exam (Primary Care) Vital Signs: Last Vital Signs Temp 97.9 F 07/22/25 13:31 Pulse 81 07/22/25 13:31 Resp 18 07/22/25 13:31 BP 122/68 07/22/25 13:31 Pulse Ox 98 07/22/25 13:31 BMI result Body Mass Index 24.5 Tobacco/Smoking Status: Tobacco use Status Tobacco use date assessed 01/24/25 07/22/25 13:29 Patient Tobacco Use Status Never used Tobacco 07/22/25 13:29 e-Cigarette/Vaping Use Never Used 07/22/25 13:29 Thrive Assessment: Date of Thrive Assessment Date Thrive assessed 07/22/25 07/22/25 13:37 Currently or been in a relationship where the following occur: I choose not to answer Const General: cooperative, comfortable, no acute distress, alert and awake; No confusion Orientation/consciousness: oriented to person, oriented to place, patient oriented x3 and No confusion HENMT Head: Yes normocephalic Ears: external ears normal and TM's normal bilaterally Face and sinus: No sinus tenderness Mouth: Normal oral and palatal mucosa present and tongue normal Teeth and gingiva: dentition normal and gingiva normal Throat: Yes posterior oropharynx normal, Yes tonsils normal and Yes uvula midline Eyes Conjunctivae: conjunctivae normal Sclerae: sclerae normal Pupils: Equal, round and reactive pupils present EOM: EOMs intact bilaterally Direct Ophthalmoscopy: No no photophobia Neck Neck: Yes no lymphadenopathy, No tender and Yes no JVD Thyroid: Thyroid normal Carotids: no bruits Chest Chest palpation & inspection: no tenderness Resp Effort & Inspection: normal respiratory effort, no audible wheezes, not labored and no stridor Auscultation: no crackles, no rales, no rhonchi and no wheezes Cardio Jugular venous distension: no JVD Rate: regular rate, not bradycardic and not tachycardic Rhythm: regular rhythm Bruits: no carotid bruits Peripheral pulses: Peripheral pulses 2+ throughout GI Inspection: Yes normal to inspection, No abdominal wall ecchymosis and No visible herniation Palpation (GI): Soft to palpation, nontender, no guarding, not rigid and No hepatosplenomegaly present Auscultation: normoactive bowel sounds General: Yes no CVA tenderness Back/Spine/Pelvis Back: no CVA tenderness and No back tenderness Cervical Spine: cervical ROM normal Thoracic/Lumbar Spine: thoracic and lumbar spine normal to inspection, straight leg raise negative bilaterally, No thoraco-lumbar ROM limited and No lumbar spinal tenderness Skin Lesions: no lesions Rashes: no rashes Wounds: no wounds Neuro General: oriented to person, oriented to place, patient oriented x3, CN's II-XI intact bilaterally and No confusion Cranial nerves: Yes Equal, round and reactive pupils present and Yes Normal accommodation reflex present Cognition (Neuro): normal cognition Speech: No Abnormal speech present Gait exam (Neuro): Normal gait present Motor exam (neuro): 5/5 motor strength present throughout Extrem Right upper extremity: full ROM; no cyanosis Left upper extremity: full ROM; no cyanosis Right lower extremity: no edema Left lower extremity: no edema Psych Appearance: grossly normal Mental Status: mental status grossly normal Affect: normal affect Attitude: cooperative Thought process: Normal thought process present Coding Level of Care Code Est Pt Prev Care >65y(89959) Diagnoses Physical exam Z00.00 Essential hypertension I10 Hypertension type: essential hypertension Left groin pain R10.32 Acne rosacea L71.9 Assessment & Plan Assessment & Plan (1) Physical exam: Code(s): Z00.00 - Encounter for general adult medical examination without abnormal findings Category: Medical Plan: As per HPI (2) HTN (hypertension): Code(s): I10 - Essential (primary) hypertension Category: Medical Qualifiers: Hypertension type: essential hypertension Qualified Code(s): I10 - Essential (primary) hypertension Plan: Patient's blood pressure acceptable today in office. She continues to be compliant with losartan 50 mg. Goal blood pressures to be consistently below 140/90 (3) Left groin pain: Code(s): R10.32 - Left lower quadrant pain Category: Medical Plan: For the patient's left groin pain, which is likely related to hip arthritis, the use of topical analgesics such as a lidocaine roll-on or Icy Hot was recommended as a safer alternative to oral NSAIDs like Aleve. Applying a heating pad to the area was also suggested. An X-ray of the left hip may be considered in the future if pain persists. (4) Acne rosacea: Code(s): L71.9 - Rosacea, unspecified Category: Medical Plan: Regarding the patient's skin, a prescription for topical metronidazole gel will be sent to the pharmacy to treat the acne rosacea on her cheeks and nose. Medications: New metronidazole 1% 1 appl topical DAILY 60 grams 0RF 4 weeks L71.9 - Rosacea, unspecified Refilled losartan 50 mg PO DAILY 90 tabs 2RF I10 - Essential (primary) hypertension
[2025-07-22 13:31] VITALS: BP 122/68; PULSE 81; RESP 18; TEMP 36.6; O2SAT 98; BMI 24.5
--- OUTSIDE RECORDS SUMMARY | 2025-07-22 16:34 | XMS_ITS | Encounter Summary ---
Author Organization [employer] Address [address] [place] [address] Care Team Providers Care Manager Internet Name Role Phone Unavailable Primary Care Provider Unavailabl e Reason for Visit * Reason Onset Date Comments Appointment 06/01/2023 Encounter Details Date Type Department Care Team (Late st Contact Info) Description 06/01/2023 Telephone [facility] [address] [place] [address] Mike Briseno, [address] [place] [address] Appointment Social History Tobacco Use Types Packs/Day [...]
--- OUTSIDE RECORDS SUMMARY | 2025-07-22 16:34 | XMS_ITS | Encounter Summary ---
Author Organization [employer] [facility] Address [address] [place] [id number] Care Team Providers Care Abalone Sheller Name Role Phone Unavailable Primary Care Provider Unavailabl e Encounter Details Date Type Department Care Team (Latest Contact Info) Description 07/06/2021 Abstract [facility] Dental, Provider, DDS Social History Tobacco Use Types Packs/Day Years Used Date Smoking Tobacco: Never Assessed Comments Unknown Sex and Gender Information Value Date Recorded Sex Assigned at Female 05/31/2022 10:17 AM EDT Legal Sex Female 10:17 AM EDT Gender Identity Female 09/29/2022 2:10 PM EST Sexual Orientation Straight 09/29/2022 2: 10 PM EST documented as of this encounter Plan of Treatment Not on file documented as of this encounter Visit Diagnoses Not on filedocumented in this encounter
--- OUTSIDE RECORDS SUMMARY | 2025-07-22 16:34 | XMS_ITS | Data Portability ---
Author Organization [facility] Address [address] [place] [address] Care Team Providers Care Ice Cream Server Name Role Phone JUDY PFEIFFER Primary Care Provider Assessment No assessment recorded. Plan of Treatment Reminders Order Date Submit Date Provider Last Modified By Organization Details Last Modified Time Details Appointments None recorded. Lab None recorded. Referral None recorded. Procedures None recorded. Surgeries None recorded. Imaging None recorded. Medication Orders ibuprofen 600 mg tablet 2022 023 [facility] [address] [place] [address], [address], 3 09:29:45 cyclobenzap rine 10 mg tablet 2022 023 [facility] [address] [place] [address], [address], 3 09:29:44 Patient TargetsNo targets recorded. Patient Instructions Encounter Date Encounter Id Patient Instructions Last Modified By Organization Details Last Modified Time 11/01/2022 [id number] MUSCULOSKELETAL PAIN can be managed quite effectively with over the counter medications and home treatments. When suffering from sprains, strains, contusions and other types of very painful but non-dangerous musculoskeletal pain try the followin. IBUPROFEN 600 mg orally every 6 hours as needed for pain. (You may substitute naproxen/aleve 1-2 tablets orally twice per day, but do not take ibuprofen and naproxen together. They are in the same class of medications - NSAIDs). 2. ACETAMINOPHEN 1,000 mg or 6 hours is needed for pain. 3. ICE and/or HEAT as needed for [...] add heat as needed for pain control. 4. Topical medication such as ASPERCREME, mineral ice, and bengay feels good to rub on painful areas and then works by distracting you from the pain. Do not apply over broken skin. 5. Many musculoskeletal injuries can benefit from gentle stretching or strengthening exercises. If pain does not improve please see your doctor or return to [facility] within one week. If your symptoms become severe or uncontrolled or if you develop new concerning symptoms please go to the Emergency Department for evaluation and pain control. [email or web address] Not available 11/01/2022 09:29:37 Elevate injured extremity to help decrease swelling Ice the area 15 minutes every 3-4 hours ibuprofen and/or tylenol as needed for pain Follow up with [facility] or your pcp if the injury fails to heal in the coming weeks summer Not available 11/01/2022 09:29:15 Reason for Referral None Reported. Problems Name Problem SNOMED Code Status Onset Date Resolution Date Notes Provider Name and Address Organization Details Recorded Time Hypertensive disorder 00051288 Active 2022 JUVENTINO swartz, PA - [facility] 3 08:58:00 Problem Notes None recorded. Medical Equipment None Reported. Allergies Allergen ID Allergen Name Allergen Category Reaction Reaction Severity Criticality Documentation Date Start Date Code Code System Note Provider Name and Address Organization Details Recorded Time 921862 Product containin g penicilli n (product) medicatio n hallucina tions Not available Not available 11/01/2022 30051 8001 SNOMED JUVENTINO swartz, PA - [facility] 3 08:59:21 560790 amoxicill in medicatio n hallucina tions Not [...] (BMI) Body weight Respiratory rate Oxygen saturation Heart rate Body temperature Systolic And Diastolic Provider Name and Address Organization Details Last Updated DateTime 3 165.1 cm 25.8 kg/m2 94972.8 2 g 16 /min 98 % 84 /min 98.4 [degF] 143/77 mm[Hg] JUVENTINO MEZA PA - [facility] 3 09:02:02 Social History Question Answer Notes LastModified by Organizat ion Details LastModified Time Tobacco Smoking Status Never Smoker JUVENTINO MEZA null, PA - [facility] 11/01/2022 09:00:40 Have You Recently Traveled Abroad? No [email or web address] Information not available 11/01/2022 Sex: Unknown Functional Status Question Answer Note LastModified by Organizat ion Details LastModified Time Do you use any illicit or recreational drugs? No [email or web address] Information not available 11/01/2022 Do you or have you ever used any other forms of tobacco or nicotine? No [email or web address] Information not available 11/01/2022 What is your level of alcohol consumption? None [email or web address] Information not available 11/01/2022 Mental Status None recorded. Family History Relationship Description Onset Age of this Age Resolved Age Notes LastModified by Organization Details LastModified Time Father No current problems or disability [email or web address] Not available 11/01 09:00:20 Mother No current problems or disability [email or web address] Not available 11/01 09:00:21 Medical History No medical history recorded. Gynecological HistoryNo gynecological history recorded. Obstetrics History GPAL:G 0 P 0 0 0 0 Past Encounters Encounter ID Performer Location Encounter Start Date Encounter Closed Date Diagnosis/Indication Diagnosis SNOMED-CT Code Diagnosis ICD10 Code Diagnosis IMO Codes Diagnosis Note [id number] [address] [place] [address] 05/10/2022 10:03:32 05/10/2022 14:14:57 [id number] [address] [place] [address] 03/29/2022 08:22:54 03/29/2022 10:00:25 [id number] [address] [place] [address] 04/25/2022 09:04:23 04/25/2022 11:30:34 [id number] [address] [place] [address] 08/02/2016 09:08:03 08/02/2016 09:33:56 [id number] [address] [place] [address] 11/18/2015 12:45:31 11/18/2015 13:25:26 [id number] Adirán Ibarra NP [address] [place] [address] 11/01/2022 08:13:20 11/01/2022 09:32:08 Fall on same level from slipping, tripping or stumbling 592398805 W01.0XXA Muscle pain 15052284 M79 .10 Contusion of right hip region [id number] 8424243 S70.01XA Health Concerns Section Related Observation LastModified by Organization Detai ls LastModified Time None Recorded Concern Status LastModified by Organization Details LastModified Time None Recorded Advance Directives Directive None Recorded Payers Insurance Date Sequence Insurance Name Policy Number Policy Dotson Covered Member ID Dotson Member ID Guarantor Name 11/01/2022 1 [facility] (O) [id number] [facility] [id number] [facility] Notes Date Note Type Note Provider Name and Address Organization Details Recorded Time 11/01/2022 text/html FallReported by PatientHPIFor source of patient information, patient reportsinformation obtained from patient,patient arrived at urgent care ambulatory, andlearning styles: auditory. For location of injuries, patient reportsback,wrist right,hand right,hip right, andknee right. For quality, patient reportsaching. For severity, patient reportspain scale : 3. For duration, patient reportsconstant. 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 For context, patient reportsfell from standing positionandtripped. For aggravating factors, patient reportsstanding,walking ,lifting, andbending. For alleviating factors, patient reportsiceandrest. For associated symptoms, patient reportsrecalls eventandno dizziness. For location where injury occurred, patient reportsstore/shoppingan doutdoors. For reported medications, patient reportsnot currently taking a blood thinner. Generic HPI TemplateReported by Patient Adrián Ibarra NP [address] [place], [address], [place] - [facility] 11/01/2022 09:31:46 OBGyn Episode No OBEpisode recorded.
--- OUTSIDE RECORDS SUMMARY | 2025-07-22 16:34 | XMS_ITS | Clinical Summary ---
Author Organization [employer] Address [address] [place] [address] Care Team Providers Care Fishing Tool Supervisor Name Role Phone Unavailable Primary Care Provider Unavailabl e Allergies Active Allergy Reactions Criticality Noted Date Comments Amoxicillin 05/03/2024 Penicillins 06/18/2021 Medications losartan (Cozaar) 25 MG tablet Take 1 tablet by mouth at bed time. Active Naproxen Sodium 220 MG capsule Take 1 capsule by mouth every 12 (twelve) hours. Active losartan (Cozaar) 50 MG tablet Take 50 mg by mouth in the morning. 3 Active fexofenadine (Mendy) 180 MG tablet Take 180 mg by mouth in the morning. 3 Active permethrin (Elimite) 5 % cream 4 Active albuterol (Ventolin HFA) 108 (90 Base) MCG/ACT inhaler INHALE 2 PUFFS BY MOUTH EVERY 4 HOURS NEEDED FOR SHORTNESS OF BREATH Active Active Problems Problem Noted Date Diagnosed Date Mixed anxiety depressive disorder 04/06/2024 Overweight 04/06/2024 Perimenopause 04/06/2024 Hypertension 11/01/2022 Social History Tobacco Use Types Packs/Day Years Used Date Smoking Tobacco: Never Passive Smoke Exposure: Never Smokeless Tobacco: Never Tobacco Cessation:Counseling Given: Not Answered Alcohol Use Standard Drinks/Week Comments Never 0 (1 standard drink = 0.6 oz pur e alcohol) Comments Unknown Sex and Gender Information Value Date Recorded Sex Assigned at Female 05/31/2022 10:17 AM EDT Legal Sex Female 10:17 AM EDT Gender Identity Female 09/29/2022 2:10 PM EST Sexual Orientation Straight 09/29/2022 2: 10 PM EST Last Filed Vital Signs Vital Sign Reading Time Taken Comments Blood Pressure 122/68 05/03/2024 2:56 PM EDT Pulse 65 11/30/2023 3:04 PM EDT Temperature - - Respiratory Rate - - Oxygen Saturation - - Inhaled Oxygen Concentration - - Weight - - Height - - Body Mass Index - - Plan of Treatment Health Maintenance Due Date Last Done Comments CT Colonography 1959 Colonoscopy 1959 Colorectal Cancer Screening 1959 Dental X-Ray: Full Mouth 1959 Depression Screening 1959 FIT DNA/Cologuard 1959 FIT 1959 FOBT 1959 Lipid Panel 1959 SDOH Screening 1959 Sigmoidoscopy 1959 Alcohol/Substance Use Screening 1971 Hepatitis C Screening 1977 DTaP/Tdap/Td Vaccines (1 - Tdap) 1978 Pap Smear 1980 Cervical Cancer Screening 1989 HPV/Cotest 1989 Mammogram 1999 Pneumococcal Vaccine: 50+ Years (1 of 1 - PCV) 2009 Zoster Vaccines (1 of 2) 2009 Dental Oral Exam 06/02/2024 11/30/2023, , 09/29/2022 Dental Prophylaxis 06/02/2024 11/30/2023, 1 , 09/29/2022 Dental X-Ray: Bitewings 11/30/2024 11/30/2023, 09/29 COVID-19 Vaccine ( season) 2025 08/07/2021, 12/12/2020, 11/20/2020 Influenza Vaccine (#1) 2025 3, 04/23/2022, 05/06/2021, Additional history exists Tobacco Screening 06/21/2025 06/21/2024 RSV Patients and Patients Aged 60 years or older (1 - 1-dose 75+ series) 2034 HIB Vaccines Aged Out No longer eligi ble based on patient's age to complete this topic HPV Vaccines Aged Out No longer eligi ble based on patient's age to complete this topic Hepatitis A Vaccines Aged Out No long er eligible based on patient's age to complete this topic Hepatitis B Vaccines Aged Out No long er eligible based on patient's age to complete this topic IPV Vaccines Aged Out No longer eligi ble based on patient's age to complete this topic Meningococcal B Vaccine Aged Out No l onger eligible based on patient's age to complete this topic Meningococcal Vaccine Aged Out No patti vamshi eligible based on patient's age to complete this topic RSV under 20 months Aged Out No longe r eligible based on patient's age to complete this topic Rotavirus Vaccines Aged Out No longer eligible based on patient's age to complete this topic Procedures Procedure Name Priority Date/Time Associated Diagnosis Comments Full PROPHYLAXIS - ADULT Routine 024 3:00 PM EDT BITEWINGS - 4 RADIOGRAPHIC IMAGES Routine 11/30/2023 3:00 PM EDT PERIODIC ORAL EVALUATION - ESTABLISHED PATIENT Routine 11/30/2023 3:00 PM EDT from Last 3 Months or Most Recently Relevant to Health Maintenance Insurance DENTAL - [facility] PARTIAL (MEDICAID) [place] [id number]
== END 2025-07-22 14:21 | disposition home or self-care (01) ==
LOC: HO.HMCH 13:11
PROVIDERS: PCP Physician Assistant; Visit Provider Physician Assistant
DX: Z00.00 Encounter for general adult medical examination without abnormal findings (principal); I10 Essential (primary) hypertension; R10.32 Left lower quadrant pain; L71.9 Rosacea, unspecified

== ENCOUNTER → 2025-07-22 13:10 | Outpatient (BNVA) | payer MEDICARE, MEDICAID, SELFPAY | PROVIDERS: PCP Physician Assistant; Visit Provider Physician Assistant | DX: Z00.00 Encounter for general adult medical examination without abnormal findings (principal); I10 Essential (primary) hypertension; R10.32 Left lower quadrant pain; L71.9 Rosacea, unspecified; M85.89 Other specified disorders of bone density and structure, multiple sites; Z13.31 Encounter for screening for depression | CPT/HCPCS: 96127; 99397 ==